=== PATIENT | female | born 1990 | race Caucasian/White ===

== ENCOUNTER 2023-04-16 13:50 | Emergency (ER) | payer OTHER, SELFPAY ==
[2023-04-16 13:57] VITALS: BP 115/80; PULSE 92; RESP 16; TEMP 36.6; O2SAT 97; BMI 27.3
--- NOTE | 2023-04-16 14:01 | XR_ITS ---
The [address] [address] Patient Name: MARISOL SKY MRN: [id number] date: 1990 Sex: F Assigned Patient Location: ER Current Patient Location: ER Accession/Order Number: [id number] Exam Date: 04/16/2023 14:27 Report Date: 04/16/2023 14:43 At the request of: VISH SAVAGE Procedure: XR knee LT 4V PROCEDURE: XR knee LT 4V COMPARISON: None. HISTORY: fall FINDINGS: BONES:No fracture, acute abnormality, or significant arthropathy. SOFT TISSUES:Negative. No visible soft tissue swelling. EFFUSION:None visible. OTHER: Negative. XR/XR knee LT 4V IMPRESSION: No acute radiographic abnormality Electronically authenticated by: PAVAN MULTANI Date: 04/16/2023 14:43
--- NOTE | 2023-04-16 14:01 | XR_ITS ---
The [address] [address] Patient Name: MARISOL SKY MRN: [id number] date: 1990 Sex: F Assigned Patient Location: ER Current Patient Location: ER Accession/Order Number: [id number] Exam Date: 04/16/2023 14:27 Report Date: 04/16/2023 14:45 At the request of: VISH SAVAGE Procedure: XR sacrum coccyx min 2V PROCEDURE: XR sacrum coccyx min 2V COMPARISON: None. HISTORY: fall FINDINGS: SACRUM: No fracture, disruption of the sacral ala line, or cortical irregularity. COCCYX: No fracture or suspicious alignment. SOFT TISSUES: No widening of the sacroiliac joints. No radiopaque foreign body. OTHER: XR/XR sacrum coccyx min 2V IMPRESSION: No acute fracture Electronically authenticated by: PAVAN MULTANI Date: 04/16/2023 14:45
--- NOTE | 2023-04-16 14:22 | PC.NURSE ---
PT SLIPPED ON ICE IN [place]IVEWAY ON [place] ON L SIDE AND BUTTOCK. C/O L KNEE PAIN AND L HIP PAIN. BRUISE TO HIP. DENIES HITTING HEAD. HAS BEEN USING TYLENOL AND ICING
--- NOTE | 2023-04-16 14:45 | ED.GENADUL1 ---
HPI - General Adult General Chief complaint: Extremity Injury, Lower Stated complaint: FELL IN DRIVEWAY AT HOME ON ICE Time Seen by Provider: 04/16/23 14:01 Source: patient Mode of arrival: walk-in Limitations: no limitations History of Present Illness HPI narrative: Patient is a 33-year-old female who presents to the emergency department for the evaluation of pain in the left buttock and left knee. Patient states she slipped on ice at home 2 days ago. She is able to walk more today which prompted her to come to the ER. She states she has been missing work. She states she slipped and landed on her left side, no head injury or loss of consciousness. She reports some mild stiffness to the low back but reports most of her pain is in the left buttock and left knee. She does have bruising to the left thigh. No medications taken prior to arrival today. She is not concerned for . She drove herself to the emergency department and ambulated into the ER. Related Data Previous Rx's Medication Instructions Recorded hydrocodone 5 mg-acetaminophen 325 1 tab PO Q6H PRN pain 3 days #12 04/16/23 mg tablet tabs ketorolac 10 mg tablet 10 mg PO TID PRN pain #10 tabs 04/16/23 methocarbamol 750 mg tablet 750 mg PO TID PRN pain #20 tabs 04/16/23 Allergies Allergy/AdvReac Type Severity Reaction Status Date / Time No Known Drug Allergies Allergy Verified 04/16/23 13:56 Review of Systems ROS Constitutional Denies: fever or chills Ears, nose, mouth, and throat Denies: throat pain or nasal congestion Cardiovascular Denies: chest pain Respiratory Denies: shortness of breath or cough Gastrointestinal Denies: nausea or vomiting Musculoskeletal Reports: back pain, extremity pain and joint pain; Denies: neck pain or extremity swelling Integumentary/Breast Denies: rash Neurological Denies: headache, dizziness or vertigo Endocrine Denies: excessive urination Hematologic/Lymphatic Denies: easy bruising or easy bleeding PFSH PFSH Social History Smoking status: Never smoker Exam Narrative Exam Narrative: Gen.: Awake, alert, in no distress Head: Normocephalic, atraumatic ENT: Moist mucous membranes; No bony tenderness of the C-spine Respiratory: No respiratory distress Back: No bony tenderness of the T-spine or L-spine with diffuse tenderness of the left posterior buttock Extremities: Ecchymosis noted to the anteromedial aspect of the left knee with no laxity of the left patella or joint effusion. Diffuse tenderness of the left posterior hip/buttock as well as the left hip with a large area of ecchymosis noted over the left superior/lateral hip. Psych: Normal mood and affect Neuro: No focal neuro deficit Skin: Warm, dry, intact Constitutional Vital Signs, click to edit/add: Last Vital Signs Temp 97.9 F 04/16/23 13:57 Pulse 92 H 04/16/23 13:57 Resp 16 04/16/23 13:57 BP 115/80 04/16/23 13:57 Pulse Ox 97 04/16/23 13:57 O2 Del Method Room Air 04/16/23 13:57 Course Vital Signs Vital signs: Vital Signs Temperature 97.9 F 04/16/23 13:57 Pulse Rate 92 H 04/16/23 13:57 Respiratory Rate 16 04/16/23 13:57 Blood Pressure 115/80 04/16/23 13:57 Pulse Oximetry 97 04/16/23 13:57 Oxygen Delivery Method Room Air 04/16/23 13:57 Temperature 97.9 F 04/16/23 13:57 Pulse Rate 92 H 04/16/23 13:57 Respiratory Rate 16 04/16/23 13:57 Blood Pressure 115/80 04/16/23 13:57 Pulse Oximetry 97 04/16/23 13:57 Oxygen Delivery Method Room Air 04/16/23 13:57 Medical Decision Making MDM Narrative Medical decision making narrative: Patient resell to the ER, she was treated with Toradol. Her x-rays of the sacrum coccyx, left hip, left knee are unremarkable. These were reviewed by the radiologist. Angus wrap applied to the left knee. Patient given an invalid ring for home. Follow-up with PCP and return to the emergency department if symptoms change or worsen. Short course of analgesics, muscle relaxants and NSAIDs given for home. Medical Records Medical records reviewed: Yes I reviewed the patient's medical records Imaging Data XR hip: Attestation: I have reviewed the pertinent imaging results. Radiologist's impression: ITS Impressions Knee X-Ray 04/16/23 14:01 IMPRESSION: No acute radiographic abnormality Electronically authenticated by: PAVAN MULTANI Date: 04/16/2023 14:43 Sacrum and Coccyx X-Ray 04/16/23 14:01 IMPRESSION: No acute fracture Electronically authenticated by: PAVAN MULTANI Date: 04/16/2023 14:45 Hip X-Ray 04/16/23 14:47 IMPRESSION: No acute fracture Electronically authenticated by: PAVAN MULTANI Date: 04/16/2023 15:10 Discharge Plan Discharge Chief Complaint: Extremity Injury, Lower Clinical Impression: Contusion of left leg, Fall Patient Disposition: Home, Self-Care Time of Disposition Decision: 15:15 Condition: Good Prescriptions / Home Meds: New hydrocodone-acetaminophen 5-325 mg tablet 1 tab PO Q6H PRN (Reason: pain) 3 Days Qty: 12 0RF Rx Instructions: DX: M25.562 ketorolac 10 mg tablet 10 mg PO TID PRN (Reason: pain) Qty: 10 0RF methocarbamol 750 mg tablet 750 mg PO TID PRN (Reason: pain) Qty: 20 0RF Instructions: Contusion in Adults (ED) Stand Alone Forms: Portal Instructions Referrals: Physician,Non-Staff, MD [Primary Care Provider] - 1 week
--- NOTE | 2023-04-16 14:47 | XR_ITS ---
The [address] [address] Patient Name: MARISOL SKY MRN: [id number] date: 1990 Sex: F Assigned Patient Location: ER Current Patient Location: ED.MAIN Accession/Order Number: [id number] Exam Date: 04/16/2023 14:50 Report Date: 04/16/2023 15:10 At the request of: VISH SAVAGE Procedure: XR hip LT min 2V PROCEDURE: XR hip LT min 2V COMPARISON: None. HISTORY: fall FINDINGS: BONES:No fracture, acute abnormality, or significant arthropathy. SOFT TISSUES:Negative. No visible soft tissue swelling. EFFUSION:None visible. OTHER: Negative. XR/XR hip LT min 2V IMPRESSION: No acute fracture Electronically authenticated by: PAVAN MULTANI Date: 04/16/2023 15:10
[2023-04-16] MEDS: KETOROLAC TROMETHAMINE 10 MG TABLET PO (14:59)
== END 2023-04-16 15:32 | disposition home or self-care (01) ==
PROVIDERS: Emergency Provider Emergency Medicine
DX: S80.12XA Contusion of left lower leg, initial encounter (principal); W00.0XXA Fall on same level due to ice and snow, initial encounter
CPT/HCPCS: 72220; 73502; 73564; 99284

== ENCOUNTER 2024-11-19 22:48 | Emergency (ER) | payer SELFPAY ==
[2024-11-19] VITALS (11 sets, daily range): BP systolic 121–149; BP diastolic 87–100; PULSE 70–97; TEMP 36.8; O2SAT 96; BMI 29.5
--- NOTE | 2024-11-19 22:55 | ECG_ITS ---
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
--- OUTSIDE RECORDS SUMMARY | 2024-11-19 22:58 | XMS_ITS | Clinical Summary ---
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 Role Phone MgDelilah browndipti Mcnally [employer] Primary Care Provider Allergies Active Allergy Reactions Criticality Noted Date Comments Other 06/14/2021 Sugar free gum Pineapple Shortness Of Breath,Swelling High 08/06/2021 Swelling in mouth/throat, Medications SUMAtriptan (IMITREX) 100 MG tablet Take 1 tablet by mouth once as needed for Migraine 9 tablet 3 06/15/2021 Active albuterol sulfate HFA 108 (90 Base) MCG/ACT inhaler Inhale 2 puffs into the lungs every 6 hours as needed for Wheezing Active cetirizine (ZYRTEC) 10 MG tablet Take 10 mg by mouth daily Active levothyroxine (SYNTHROID) 100 MCG tablet Take 100 mcg by mouth Daily Active topiramate (TOPAMAX) 25 MG tablet Take 25 mg by mouth at bedtime Active verapamil (CALAN SR) 120 MG extended release tablet TAKE 1 TABLET BY MOUTH EVERY DAY 30 tablet 5 08/30/2021 Active Active Problems Problem Noted Date Diagnosed Date 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 Social History Tobacco Use Types Packs/Day Years Used Date Smoking Tobacco: Former Cigarettes 0.3 3.5 S tarted: 06/07/2021 Smokeless Tobacco: Never Alcohol Use Standard Drinks/Week Comments Yes 0 (1 standard drink = 0.6 oz pur e alcohol) 6 beer every 2weeks Comments No Sex and Gender Information Value Date Recorded Sex Assigned at Female 08/06/2021 10:05 AM EDT Legal Sex Female 7:52 PM EDT Gender Identity Female 08/06/2021 10:05 AM EDT Sexual Orientation Lesbian 08/06/2021 10 :05 AM EDT Last Filed Vital Signs Vital Sign Reading Time Taken Comments Blood Pressure 110/65 08/06/2021 1:43 PM EDT Pulse 85 08/06/2021 1:43 PM EDT Temperature 36.3 C (97.3 F) 08/06/2021 1:43 PM EDT Respiratory Rate 18 08/06/2021 1:43 PM EDT Oxygen Saturation 97% 06/15/2021 1:01 PM EDT Inhaled Oxygen Concentration - - Weight 88.9 kg (195 lb 14.4 oz) 08/06/2021 1:43 PM EDT Height 174 cm (5' 8.5 ) 08/06/2021 1:43 PM EDT Body Mass Index 29.35 08/06/2021 1:43 PM EDT Plan of Treatment Not on file Insurance BCBS OUT OF STATE [employer] Care 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
--- OUTSIDE RECORDS SUMMARY | 2024-11-19 22:59 | XMS_ITS | CCD ---
Author Organization [facility] Inform ion [facility] Care Team Providers Care Folder Hand Name Role Phone Provider, None Unavailable Unavailable Spasic, Max Unavailable Unavailable Provider, None Unavailable Unavailable Spasic, Max Unavailable Unavailable Unavailable Primary Care Provider Chuy Dawson CNP Primary Care Provider JAME CELAYA Referring Unavailable TERRY FATIMA Admitting Unavailable TERRY FATIMA Attending Unavailable FRANCK MEJÍA Referring Unavailable CHUY GILLESPIE Primary Care Unavailable Allergies Allergy Classification Reported Allergen(s) Allergy Type Date of Onset Reaction(s) Facility (1 source) sugar free gum; Translations: [sugar free gum] Propensity to adverse reactions (disorder) [facility] Repository (2 sources) [place] Allergy to substance 2 Shortness of Breath / Dyspnea [facility] Work Phone: NEGATED: Highlighted row has been ruled out! (2 sources) Other Propensity to adverse reactions 2 [facility] Medications Current Medications Medication Drug Class(es) Dates Sig (Normalized) Sig (Original) acetaminophen 325 mg oral tablet (1 source) Start: 06-15-2021 acetaminophen (TYLENOL) tablet 650 mg [id number] 200 actuat albuterol 0.09 mg/actuat metered dose inhaler (1 source) beta2-Adrenergic Agonist Start: 06-29-2021 ProAir HFA 108 (90 Base) MCG/ACT Inhalation Aerosol Solution 06/29/2021 Provider: Chuy Gillespie CNP cetirizine hydrochloride 10 mg oral tablet (2 sources) Histamine-1 Receptor Antagonist Start: 06-29-2021 End: 07-23-2021 Cetirizine HCl 10 MG Oral Tablet 07/23/2021 Provider: Chuy Gillespie CNP levothyroxine sodium 0.1 mg oral tablet (2 sources) l-Thyroxine Start: 06-28-2021 End: 07-20-2021 Levothyroxine Sodium 100 MCG Oral Tablet 07/20/2021 Provider: Chuy Gillespie CNP SUMAtriptan 25 mg oral tablet (6 sources) Serotonin-1b and Serotonin-1d Receptor Agonist Start: 06-21-2021 Imitrex 25 MG Oral Tablet 06/21/2021 Provider: Chuy Gillespie CNP Start: 06-15-2021 End: 06-21-2021 SUMAtriptan Succinate 100 MG Oral Tablet 06/15/2021 - 06/21/2021 Provider: Start: 06-15-2021 take 1 tablet by spike th once as needed SUMAtriptan (IMITREX) 100 MG tablet Take 1 tablet by mouth once as needed for Migraine 9 tablet 3 06/15/2021 Active topiramate 25 mg oral tablet (2 sources) Start: 06-21-2021 Topamax 25 MG Oral Tablet 06/21/2021 Provider: Chuy Gillespie CNP Completed/Discontinued Medications Medication Drug Class(es) Dates Sig (Normalized) Sig (Original) Allergy Relief 25 MG Oral Capsule (2 sources) Start: 06-21-2021 End: 06-29-2021 Allergy Relief 25 MG Oral Capsule 06/21/2021 - 06/29/2021 Provider: Start: 06-21-2021 Allergy Relief 25 MG Oral Capsule 06/21/2021 Provider: aspirin 81 mg chewable tablet (1 source) Platelet Aggregation Inhibitor, Nonsteroidal Anti-inflammatory Drug Start: 06-15-2021 End: 06-15-2021 aspirin chewable tablet 324 mg Start: 06-15-2021 End: 06-15-2021 aspirin chewable tablet 324 mg calcium chloride 0.0014 meq/ml / potassium chloride 0.004 meq/ml / sodium chloride 0.103 meq/ml / sodium lactate 0.028 meq/ml injectable solution (1 source) Start: 06-14-2021 End: 06-15-2021 lactated ringers infusion 1,000 mL 0.4 ml enoxaparin sodium 100 mg/ml prefilled syringe (1 source) Low Molecular Weight Heparin Start: 06-15-2021 inject 40 mg by subcutaneous injection once daily 40 mg, SubCUTAneous, DAILY, First dose on Fri06/15/21 at 0900, Until Discontinued gadoteridol (PROHANCE) injection 15 mL (1 source) Start: 06-22-2021 End: 06-22-2021 gadoteridol (PROHANCE) injection 15 mL iopamidol (ISOVUE-370) 76 % injection 75 mL (1 source) Start: 06-14-2021 End: 06-14-2021 iopamidol (ISOVUE-370) 76 % injection 75 mL 1 ml ketorolac tromethamine 15 mg/ml cartridge (1 source) Nonsteroidal Anti-inflammatory Drug, Cyclooxygenase Inhibitor Start: 06-14-2021 End: 06-15-2021 ketorolac (TORADOL) injection 30 mg 10 ml lidocaine hydrochloride 10 mg/ml injection (1 source) Antiarrhythmic, Amide Local Anesthetic Start: 06-14-2021 End: 06-15-2021 lidocaine 1 % injection Problems Problem Classification Problem Date Documented Date Episodic/Chronic Anxiety disorders (2 sources) Panic disorder without agoraphobia; Translations: [Panic disorder without agoraphobia] Onset: 06-21-2021 Chronic Blindness and vision defects (5 sources) Homonymous bilateral field defects, left side; Translations: [Homonymous bilateral field defects] Onset: 06-15-2021 Episodic Headache; including migraine (7 sources) Ophthalmic migraine; Translations: [Migraine with aura, not intractable, without status migrainosus] Onset: 06-15-2021 Chronic Headache; including migraine (1 source) Acute headache; Translations: [Acute nonintractable headache, unspecified headache type] Episodic Immunizations and screening for infectious disease (2 sources) HIV screening; Translations: [Special screening examination for other specified viral diseases] Onset: 06-21-2021 Episodic Neoplasms of unspecified nature or uncertain behavior (1 source) 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; Translations: [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] Onset: 06-29-2021 Episodic Other lower respiratory disease (1 source) Cough; Translations: [Cough] Onset: 07-26-2021 Episodic Other nutritional; endocrine; and metabolic disorders (4 sources) Finding of body mass index; Translations: [Body mass index (observable entity)] Onset: 06-21-2021 Episodic Other screening for suspected conditions (not mental disorders or infectious disease) (2 sources) Encounter for screening for diabetes mellitus; Translations: [Diabetes Risk Test Score] Onset: 06-21-2021 Episodic Results Test Name Value Interpretation Reference Range Facility MRI BRAIN W WO CONTRASTon MRI BRAIN W WO CONTRAST EXAMINATION: MRI OF THE BRAIN WITHOUT AND WITH CONTRAST 06/22/2021 4:22 pm TECHNIQUE: Multiplanar multisequence MRI of the head/brain was performed without and with the administration of intravenous contrast. COMPARISON: None. HISTORY: ORDERING SYSTEM PROVIDED HISTORY: Hemianopia of left eye TECHNOLOGIST PROVIDED HISTORY: Send Report to Chuy Mcdonald CNP STAT Creatinine as needed:->Yes Is the patient ?->No Initial evaluation. FINDINGS: INTRACRANIAL STRUCTURES/VENTRICLES: There is no acute infarct. No mass effect or midline shift. No evidence of an acute intracranial hemorrhage. The ventricles and sulci are normal in size and configuration. The sellar/suprasellar regions appear unremarkable. The normal signal voids within the major intracranial vessels appear maintained. No abnormal focus of enhancement is seen within the brain. 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 ORBITS: The visualized portion of the orbits demonstrate no acute abnormality. SINUSES: Mild scattered mucosal thickening of the ethmoid sinuses bilaterally. Trace opacification of the right mastoid air cells. BONES/SOFT TISSUES: The bone marrow signal intensity appears normal. The soft tissues demonstrate no acute abnormality. IMPRESSION: 1. A septated cystic lesion is seen in the region of the pineal gland measuring up to 11 mm in size. 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 2. Otherwise, unremarkable MRI of the brain. Interpreted by: Dl Beverly MD Signed by: Dl Beverly MD 06/23/21 CC Recipients: Chuy Gillespie APRN - KATHY - Fax Final result Normal [facility] 1. A septated cystic lesion is seen in the region of the pineal gland measuring up to 11 mm in size. 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 2. Otherwise, unremarkable MRI of the brain. [facility] CONSOLID[facility] EXAMINATION: MRI OF THE BRAIN WITHOUT AND WITH CONTRAST 06/22/2021 4:22 pm TECHNIQUE: Multiplanar multisequence MRI of the head/brain was performed without and with the administration of intravenous contrast. COMPARISON: None. HISTORY: ORDERING SYSTEM PROVIDED HISTORY: Hemianopia of left eye TECHNOLOGIST PROVIDED HISTORY: Send Report to [facility] STAT Creatinine as needed:->Yes Is the patient ?->No Initial evaluation. FINDINGS: INTRACRANIAL STRUCTURES/VENTRICLES: There is no acute infarct. No mass effect or midline shift. No evidence of an acute intracranial hemorrhage. The ventricles and sulci are normal in size and configuration. The sellar/suprasellar regions appear unremarkable. The normal signal voids within the major intracranial vessels appear maintained. No abnormal focus of enhancement is seen within the brain. 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 ORBITS: The visualized portion of the orbits demonstrate no acute abnormality. SINUSES: Mild scattered mucosal thickening of the ethmoid sinuses bilaterally. Trace opacification of the right mastoid air cells. BONES/SOFT TISSUES: The bone marrow signal intensity appears normal. The soft tissues demonstrate no acute abnormality. [facility]SOL[facility] Dl Beverly MD - 06/23/2021 EXAMINATION: MRI OF THE BRAIN WITHOUT AND WITH CONTRAST 06/22/2021 4:22 pm TECHNIQUE: Multiplanar multisequence MRI of the head/brain was performed without and with the administration of intravenous contrast. COMPARISON: None. HISTORY: ORDERING SYSTEM PROVIDED HISTORY: Hemianopia of left eye TECHNOLOGIST PROVIDED HISTORY: Send Report to [facility] STAT Creatinine as needed:->Yes Is the patient ?->No Initial evaluation. FINDINGS: INTRACRANIAL STRUCTURES/VENTRICLES: There is no acute infarct. No mass effect or midline shift. No evidence of an acute intracranial hemorrhage. The ventricles and sulci are normal in size and configuration. The sellar/suprasellar regions appear unremarkable. The normal signal voids within the major intracranial vessels appear maintained. No abnormal focus of enhancement is seen within the brain. 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 ORBITS: The visualized portion of the orbits demonstrate no acute abnormality. SINUSES: Mild scattered mucosal thickening of the ethmoid sinuses bilaterally. Trace opacification of the right mastoid air cells. BONES/SOFT TISSUES: The bone marrow signal intensity appears normal. The soft tissues demonstrate no acute abnormality. IMPRESSION: 1. A septated cystic lesion is seen in the region of the pineal gland measuring up to 11 mm in size. 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 2. Otherwise, unremarkable MRI of the brain. [employer] Phone: MRI BRAIN W WO CONTRASTOrder ed By: Dl Beverly on 06-23-2021 [facility]: MRI BRAIN W WO CONTRASTon Radiology Study observation (narrative) [employer] Phone: Cult,CSFon 06-18-2021 Cult,CSF Specimen Description .CSF Direct Exam NO NEUTROPHILS SEEN NO BACTERIA SEEN Gram stain made from cytocentrifuged specimen. Organisms and cells will be concentrated. Culture NO GROWTH 3 DAYS Report Status FINAL 06/18/2021 Normal [facility] Comment on above: Performed By: #### C FC ####[address] [id number] Lab Director: Saravanan Knight, [address] [place], [place] [id number] Lab Director: Benito March MD CSF Cell Counton 06-15-2021 Appearance (U) Clear Normal [facility] Comment on above: Performed By: #### C FCNT #### [address] [place] [address] Dust Collector Treater: Benito March MD Color (U) COLORLESS Normal [facility] Comment on above: Performed By: #### C FCNT #### [address] [place] [address] Dust Collector Treater: Benito March MD RBC Count 0 /mm3 Normal 0 [facility] Comment on above: Performed By: #### C FCNT #### [address] [place], [place] [id number] Dust Collector Treater: Benito March MD Tube Number 4 Normal [facility] Comment on above: Performed By: #### C FCNT #### [facility] [address] [place] [address] Dust Collector Treater: Benito March MD WBC Count 2 /mm3 Normal 0-5 [facility] Comment on above: Result Comment: Diff erential not performed, not indicated for normal WBC Performed By: #### C FCNT #### [facility] [address] [place], [place] [id number] Dust Collector Treater: Benito March MD Xanthochromia ABSENT Normal [facility] Comment on above: Performed By: #### C FCNT #### [facility] [address] [place] [address] Dust Collector Treater: Benito March MD Volume 1.5 ML Normal [facility] Comment on above: Performed By: #### C FCNT #### [facility] [address] [place] [address] Dust Collector Treater: Benito March MD CT SELLA [place] W CONTRASTo n 06-15-2021 CT SELLA [place] W CONTRAST EXAMINATION: CT OF THE ORBITS, SELLA, EAR WITHOUT CONTRAST 06/14/2021 TECHNIQUE: CT of the orbits, sella, ear was performed without intravenous contrast. Multiplanar reformatted images were performed. Dose modulation, iterative reconstruction, and/or weight based adjustment of the mA/kV was utilized to reduce the radiation dose to as low as reasonably achievable. COMPARISON: Correlation is made with the concurrently performed CTA head and neck and noncontrast head CT. HISTORY: ORDERING SYSTEM PROVIDED HISTORY: [place] with visionchanges concern for cavenous sinus thrombosis TECHNOLOGIST PROVIDED HISTORY: [place] with visionchanges concern for cavenous sinus thrombosis Decision Support Exception - unselect if not a suspected or confirmed emergency medical condition->Emergency Medical Condition (MA) FINDINGS: ORBITS: The globes appear intact. The extraocular muscles, optic nerve sheath complexes and lacrimal glands appear unremarkable. No retrobulbar hematoma or mass is seen. No evidence of edema or venous engorgement, including preseptal regions. No suggestion of exophthalmos. SOFT TISSUES: No appreciable soft tissue swelling is seen. BRAIN: The visualized portion of the intracranial contents appear unremarkable. SELLA/CAVERNOUS SINUS: There is no evidence of enlargement or filling defect of the cavernous sinuses. No abnormal enhancement. Density appears normal on the noncontrast head CT. SINUSES: The visualized paranasal sinuses demonstrate no acute abnormality. BONES: No acute osseous abnormality is seen. Specifically, no dental abscess is evident utilizing bone windows from the CTA head and neck. IMPRESSION: Normal examination. No evidence, either primary or secondary, of cavernous sinus thrombosis. No evidence of any head and neck infection that would lead to cavernous sinus thrombosis. Interpreted by: Ryan Lovelace Signed by: Ryan Lovelace 06/14/21 Final result Normal [facility] CTA HEAD NECK W CONTRASTon 0 06-15-2021 CTA HEAD NECK W CONTRAST EXAMINATION: CTA OF THE HEAD AND NECK WITH CONTRAST 06/14/2021 9:06 pm: TECHNIQUE: CTA of the head and neck was performed with the administration of intravenous contrast. Multiplanar reformatted images are provided for review. MIP images are provided for review. Stenosis of the internal carotid arteries measured using NASCET criteria. Dose modulation, iterative reconstruction, and/or weight based adjustment of the mA/kV was utilized to reduce the radiation dose to as low as reasonably achievable. COMPARISON: CT head 06/14/2021 HISTORY: ORDERING SYSTEM PROVIDED HISTORY: with vision changes and N/V TECHNOLOGIST PROVIDED HISTORY: with vision changes and N/V Decision Support Exception - unselect if not a suspected or confirmed emergency medical condition->Emergency Medical Condition (MA) FINDINGS: CTA NECK: AORTIC ARCH/ARCH VESSELS: No dissection or arterial injury. No significant stenosis of the brachiocephalic or subclavian arteries. CAROTID ARTERIES: No dissection, arterial injury, or hemodynamically significant stenosis by NASCET criteria. VERTEBRAL ARTERIES: No dissection, arterial injury, or significant stenosis. SOFT TISSUES: The lung apices are clear. No cervical or superior mediastinal lymphadenopathy. The larynx and pharynx are unremarkable. No acute abnormality of the salivary and thyroid glands. BONES: No acute osseous abnormality. CTA HEAD: ANTERIOR CIRCULATION: No significant stenosis of the intracranial internal carotid, anterior cerebral, or middle cerebral arteries. No aneurysm. POSTERIOR CIRCULATION: origin left HEAD OF LOSS PREVENTION. No significant stenosis of the vertebral, basilar, or posterior cerebral arteries. No aneurysm. OTHER: No dural venous sinus thrombosis on this non-dedicated study. BRAIN: No mass effect or midline shift. No extra-axial fluid collection. The salazar-white differentiation is maintained. IMPRESSION: Negative for large vessel occlusion or hemodynamic stenosis. Negative for aneurysm. Interpreted by: Ralf Cruz MD Signed by: Ralf Cruz MD 06/14/21 Final result Normal [facility] Cell Count with Differential , CSFon 06-15-2021 Appearance, [facility], [facility] 0 /mm3 0 [facility] Supernatant Color, CSF COLORLESS [facility] Tube Number, CSF 4 [facility] Volume, CSF 1.5 ML [facility] WBC, CSF 2 /mm3 0 - 5 /mm3 [facility] Comment on above: Differential not per formed, not indicated for normal WBC Xanthochromia ABSENT [facility] Glucose, CSF 57 mg/dL 40 - 70 mg/dL [facility] Glucose [Mass/Vol] 57 mg/dL Normal 40-70 [facility] Comment on above: Performed By: #### C GLU, CTP #### [facility] [address] [place] [address] Dust Collector Treater: Benito March MD Lumbar Punctureon 06-15-2021 Matilde Franklin MD 06/15 12:05 AM Lumbar Puncture Date/Time: 06/15/2021 12:04 AM Performed by: Matilde Franklin MD Authorized by: Matilde Franklin MD Consent: Consent obtained: Written Consent given by: Patient Risks discussed: Bleeding, headache, nerve damage, infection, pain and repeat procedure Pre-procedure details: Procedure purpose: Diagnostic Anesthesia (see MAR for exact dosages): Anesthesia method: Local infiltration Local anesthetic: Lidocaine 1% w/o epi Procedure details: Lumbar space: L4-L5 interspace Patient position: Sitting Needle gauge: 20 Needle type: Alesha pencil tip Needle length (in): 3.5 Ultrasound guidance: no Number of attempts: 1 Fluid appearance: Clear Tubes of fluid: 4 Total volume (ml): 4 Post-procedure: Puncture site: Adhesive bandage applied and direct pressure applied Patient tolerance of procedure: Tolerated well, no immediate complications [facility] Work Phone: [facility] Work Phone: No Panel Informationon 06-15 [facility] Protein, CSFon 06-15-2021 Protein, CSF 26 mg/dL 15.0 - 45.0 mg/dL [facility] Protein, Total, CSFon 2021 Total Protein - CSF 26.0 mg/dL Normal 15.0-45.0 [facility] Comment on above: Performed By: #### C GLU, CTP #### [facility] [address] [place], [place] [id number] Dust Collector Treater: Benito March MD Basic Metabolic Panelon 05-23 Anion gap [Moles/Vol] 10 mmol/L 9 - 17 mmol/L [facility] Calcium [Mass/Vol] 9.7 mg/dL 8.6 - 10.4 mg/dL [facility] Chloride [Moles/Vol] 103 mmol/L 98 - 107 mmol/L [facility] CO2 [Moles/Vol] 25 mmol/L 20 - 31 mmol/L [facility] Creatinine [Mass/Vol] 0.63 mg/dL 0.50 - 0.90 mg/dL [facility] GFR >60 >60 mL/min [facility] GFR Non- >60 >60 mL/min [facility] Glucose [Mass/Vol] 85 mg/dL 70 - 99 mg/dL [facility] Potassium [Moles/Vol] 3.9 mmol/L 3.7 - 5.3 mmol/L [facility] Sodium [Moles/Vol] 138 mmol/L 135 - 144 mmol/L [facility] Urea nitrogen (BldV) [Mass/Vol] 11 mg/dL 6 - 20 mg/dL [facility] Urea nitrogen/Creatini ne (Bld) [Mass ratio] 17 [facility] Basic Metabolic Profon 06-14 (cont.) Normal [facility] Comment on above: Result Comment: Aver age GFR for 30-39 years old: 107 mL/min/1.73sq m Chronic Kidney Disease: <60 mL/min/1.73sq m Kidney failure: <15 mL/min/1.73sq m eGFR calculated using average adult body mass. Additional eGFR calculator available at: [email or web address]/multiple_[email or web address] Performed By: #### C DP, HCG, BMP #### [facility] [address] [place], [place] [id number] Dust Collector Treater: Benito March MD Anion gap [Moles/Vol] 10 mmol/L Normal 9-17 [facility] Comment on above: Performed By: #### C DP, HCG, BMP #### [facility] [address] [place], [place] [id number] Dust Collector Treater: Benito March MD BUN/CRE Ratio 17 Normal 9-20 [facility] Comment on above: Performed By: #### C DP, HCG, BMP #### [facility] [address] [place], [place] [id number] Dust Collector Treater: Benito March MD Calcium [Mass/Vol] 9.7 mg/dL Normal 8.6-10.4 [facility] Comment on above: Performed By: #### C DP, HCG, BMP #### [facility] [address] [place], [place] [id number] Dust Collector Treater: Benito March MD Chloride [Moles/Vol] 103 mmol/L Normal 98-107 [facility] Comment on above: Performed By: #### C DP, HCG, BMP #### [facility] [address] [place], [place] [address] Dust Collector Treater: Benito March MD CO2 [Moles/Vol] 25 mmol/L Normal 20-31 [facility] Comment on above: Performed By: #### C DP, HCG, BMP #### [facility] [address] [place], [place] [id number] Dust Collector Treater: Benito March MD Creatinine [Mass/Vol] 0.63 mg/dL Normal 0.50-0.90 [facility] Comment on above: Performed By: #### C DP, HCG, BMP #### [facility] [address] [place], [place] [id number] Dust Collector Treater: Benito March MD GFR, Amer >60 Normal >60 [facility] Comment on above: Performed By: #### C DP, HCG, BMP #### [facility] [address] [place], [place] [id number] Dust Collector Treater: Benito March MD GFR,non Amer >60 Normal >60 [facility] Comment on above: Performed By: #### C DP, HCG, BMP #### [facility] [address] [place], [place] [id number] Dust Collector Treater: Benito March MD Glucose [Mass/Vol] 85 mg/dL Normal 70-99 [facility] Comment on above: Performed By: #### C DP, HCG, BMP #### [facility] [address] [place], [place] [id number] Dust Collector Treater: Benito March MD Potassium [Moles/Vol] 3.9 mmol/L Normal 3.7-5.3 [facility] Comment on above: Performed By: #### C DP, HCG, BMP #### [facility] [address] [place], [place] [id number] Dust Collector Treater: Benito March MD Sodium [Moles/Vol] 138 mmol/L Normal 135-144 [facility] Comment on above: Performed By: #### C DP, HCG, BMP #### [facility] [address] [place] [address] Dust Collector Treater: Benito March MD Staging: Normal [facility] Comment on above: Result Comment: Stag e 1: Some kidney damage normal GFR Stage 2: Mild kidney damage GFR 60-89 Stage 3: Moderate kidney damage GFR 30-59 Stage 4: Severe kidney damage GFR 15-29 Stage 5: Severe kidney damage GFR <15 ESRD - chronic treatment by dialysis or transplant Performed By: #### C DP, HCG, BMP #### [facility] [address] [place] [address] Dust Collector Treater: Benito March MD Urea nitrogen [Mass/Vol] 11 mg/dL Normal 6-20 [facility] Comment on above: Performed By: #### C DP, HCG, BMP #### [facility] [address] [place] [address] Dust Collector Treater: Benito March MD CBC with Auto Differentialon 06-14-2021 Absolute Eos # 0.14 [facility] Absolute Immature Granulocyte <0.03 [facility] Absolute Lymph # 2.58 [facility] Absolute [place] [facility] 0[facility] (Bld) [#/Vol] 0.05 10*3/uL [facility] Basophils/100 WBC (Bld) 1 % 0 - 2 % [facility] Eosinophils/100 WBC (Bld) 2 % 1 - 4 % [facility] Hematocrit (Bld) [Volume fraction] 42.0 % 36.3 - 47.1 % [facility] Hemoglobin.gastro intestinal spec 1 Ql (Stl) 14.2 g/dL 11.9 - 15.1 g/dL [facility] Immature granulocytes/100 WBC (Bld) 0 % 0 [facility] Lymphocytes/100 WBC (Bld) 40 % 24 - 43 % [facility] MCH (RBC) [Entitic mass] 30.1 pg 25.2 - 33.5 pg [facility] MCHC (RBC) [Mass/Vol] 33.8 g/dL 28.4 - 34.8 g/dL [facility] MCV (RBC) [Entitic vol] 89.0 fL 82.6 - 102.9 fL [facility] Monocytes/100 WBC (Bld) 8 % 3 - 12 % [facility] NRBC Automated 0.0 0.0 per 100 WBC [facility] Platelet distribution width (Bld) [Ratio] 12.6 % 11.8 - 14.4 % [facility] Platelet mean volume (Bld) [Entitic vol] 9.5 fL 8.1 - 13.5 fL [facility] Platelets (Bld) [#/Vol] 287 10*3/uL [facility] RBC (Bld) [#/Vol] 4.72 10*6/uL 3.95 - 5.11 m/uL [facility] Segmented neutrophils/100 WBC (Bld) 49 % 36 - 65 % [facility] Segs [facility] 3.11 [facility]ld) [#/Vol] 6.4 10*3/uL [facility] CBC with Diffon 06-14-2021 Abs. Basophil 0.05 k/uL Normal 0.00-0.20 [facility] Comment on above: Performed By: #### C DP, HCG, BMP #### [facility] [address] [place], [place] [id number] Dust Collector Treater: Benito March MD Abs.Imm.Granulocy te <0.03 Normal 0.00-0.30 [facility] Comment on above: Performed By: #### C DP, HCG, BMP #### [address] [place], [place] [id number] Dust Collector Treater: Benito March MD Abs.Neutrophil (Seg) 3.11 k/uL Normal 1.50-8.10 [facility] Comment on above: Performed By: #### C DP, HCG, BMP #### [address] [place] [address] Dust Collector Treater: Benito March MD Basophils/100 WBC (Bld) 1 % Normal 0-2 [facility] Comment on above: Performed By: #### C DP, HCG, BMP #### [facility] [address] [place], [place] [id number] Dust Collector Treater: Benito March MD Eosinophils (Bld) [#/Vol] 0.14 10*3/uL Normal 0.00-0.44 [facility] Comment on above: Performed By: #### C DP, HCG, BMP #### [facility] [address] [place] [address] Dust Collector Treater: Benito March MD Eosinophils/100 WBC (Bld) 2 % Normal 1-4 [facility] Comment on above: Performed By: #### C DP, HCG, BMP #### [facility] [address] [place], [place] [id number] Dust Collector Treater: Benito March MD Erythrocyte distribution width (RBC) [Ratio] 12.6 % Normal 11.8-14.4 [facility] Comment on above: Performed By: #### C DP, HCG, BMP #### [facility] [address] [place] [id number] Dust Collector Treater: Benito March MD Hematocrit (Bld) [Volume fraction] 42.0 % Normal 36.3-47.1 [facility] Comment on above: Performed By: #### C DP, HCG, BMP #### [address] [place] [id number] Dust Collector Treater: Benito March MD Hemoglobin (Bld) [Mass/Vol] 14.2 g/dL Normal 11.9-15.1 [facility] Comment on above: Performed By: #### C DP, HCG, BMP #### [address] [place] [id number] Dust Collector Treater: Benito March MD Immature granulocytes/100 WBC (Bld) 0 % Normal 0 [facility] Comment on above: Performed By: #### C DP, HCG, BMP #### [address] [place], [facility]83 Dust Collector Treater: Benito March MD Lymphocytes (Bld) [#/Vol] 2.58 10*3/uL Normal 1.10-3.70 [facility] Comment on above: Performed By: #### C DP, HCG, BMP #### [facility] [address] [place] [address] Dust Collector Treater: Benito March MD Lymphocytes/100 WBC (Bld) 40 % Normal 24-43 [facility] Comment on above: Performed By: #### C DP, HCG, BMP #### [facility] [address] [place], [place] [address] Dust Collector Treater: Benito March MD MCH (RBC) [Entitic mass] 30.1 pg Normal 25.2-33.5 [facility] Comment on above: Performed By: #### C DP, HCG, BMP #### [address] [place], [place] [address] Dust Collector Treater: Benito March MD MCHC (RBC) [Mass/Vol] 33.8 g/dL Normal 28.4-34.8 [facility] Comment on above: Performed By: #### C DP, HCG, BMP #### [address] [place] [address] Dust Collector Treater: Benito March MD MCV (RBC) [Entitic vol] 89.0 fL Normal 82.6-102.9 [facility] Comment on above: Performed By: #### C DP, HCG, BMP #### [address] [place] [address] Dust Collector Treater: Benito March MD Monocytes (Bld) [#/Vol] 0.54 10*3/uL Normal 0.10-1.20 [facility] Comment on above: Performed By: #### C DP, HCG, BMP #### [address] [place], [place] [address] Dust Collector Treater: Benito March MD Monocytes/100 WBC (Bld) 8 % Normal 3-12 [facility] Comment on above: Performed By: #### C DP, HCG, BMP #### [address] [place] [id number] Dust Collector Treater: Benito March MD Neutrophil (Seg) 49 % Normal 36-65 [facility] Comment on above: Performed By: #### C DP, HCG, BMP #### [facility] [address] [place] [address] Dust Collector Treater: Benito March MD NRBC Automated 0.0 per 100 WBC Normal 0.0 [facility] Comment on above: Performed By: #### C DP, HCG, BMP #### [facility] [address] [place], [facility]83 Dust Collector Treater: Benito March MD Platelet mean volume (Bld) [Entitic vol] 9.5 fL Normal 8.1-13.5 [facility] Comment on above: Performed By: #### C DP, HCG, BMP #### [address] [place], [facility]83 Dust Collector Treater: Benito March MD Platelets (Bld) [#/Vol] 287 10*3/uL Normal 138-453 [facility] Comment on above: Performed By: #### C DP, HCG, BMP #### [address] [place] [address] Dust Collector Treater: Benito March MD RBC (Bld) [#/Vol] 4.72 10*6/uL Normal 3.95-5.11 [facility] Comment on above: Performed By: #### C DP, HCG, BMP #### [address] [place], [facility]83 Dust Collector Treater: Benito March MD WBC (Bld) [#/Vol] 6.4 10*3/uL Normal 3.5-11.3 [facility] Comment on above: Performed By: #### C DP, HCG, BMP #### [address] [place] [address] Dust Collector Treater: Benito aMrch MD CT HEAD WO CONTRASTon 2021 CT HEAD WO CONTRAST EXAMINATION: CT OF THE HEAD WITHOUT CONTRAST 06/14/2021 9:09 pm TECHNIQUE: CT of the head was performed without the administration of intravenous contrast. Dose modulation, iterative reconstruction, and/or weight based adjustment of the mA/kV was utilized to reduce the radiation dose to as low as reasonably achievable. COMPARISON: None. HISTORY: ORDERING SYSTEM PROVIDED HISTORY: [place] with vision changes TECHNOLOGIST PROVIDED HISTORY: [place] with vision changes Decision Support Exception - unselect if not a suspected or confirmed emergency medical condition->Emergency Medical Condition (MA) Is the patient ?->No FINDINGS: BRAIN/VENTRICLES: There is no acute intracranial hemorrhage, mass effect or midline shift. No abnormal extra-axial fluid collection. The salazar-white differentiation is maintained without evidence of an acute infarct. There is no evidence of hydrocephalus. ORBITS: The visualized portion of the orbits demonstrate no acute abnormality. SINUSES: The visualized paranasal sinuses and mastoid air cells demonstrate no acute abnormality. SOFT TISSUES/SKULL: No acute abnormality of the visualized skull or soft tissues. IMPRESSION: No acute intracranial abnormality. Interpreted by: Vaughn Cruz MD Signed by: Vaughn Cruz MD 06/14/21 Final result Normal [facility] CT Head WO Contraston 2021 No acute intracrania l abnormality. [facility] EXAMINATION: CT OF THE HEAD WITHOUT CONTRAST 06/14/2021 9:09 pm TECHNIQUE: CT of the head was performed without the administration of intravenous contrast. Dose modulation, iterative reconstruction, and/or weight based adjustment of the mA/kV was utilized to reduce the radiation dose to as low as reasonably achievable. COMPARISON: None. HISTORY: ORDERING SYSTEM PROVIDED HISTORY: [place] with vision changes TECHNOLOGIST PROVIDED HISTORY: [place] with vision changes Decision Support Exception - unselect if not a suspected or confirmed emergency medical condition->Emergency Medical Condition (MA) Is the patient ?->No FINDINGS: BRAIN/VENTRICLES: There is no acute intracranial hemorrhage, mass effect or midline shift. No abnormal extra-axial fluid collection. The salazar-white differentiation is maintained without evidence of an acute infarct. There is no evidence of hydrocephalus. ORBITS: The visualized portion of the orbits demonstrate no acute abnormality. SINUSES: The visualized paranasal sinuses and mastoid air cells demonstrate no acute abnormality. SOFT TISSUES/SKULL: No acute abnormality of the visualized skull or soft tissues. [facility] Vaughn Cruz MD - 06/14/2021 EXAMINATION: CT OF THE HEAD WITHOUT CONTRAST 06/14/2021 9:09 pm TECHNIQUE: CT of the head was performed without the administration of intravenous contrast. Dose modulation, iterative reconstruction, and/or weight based adjustment of the mA/kV was utilized to reduce the radiation dose to as low as reasonably achievable. COMPARISON: None. HISTORY: ORDERING SYSTEM PROVIDED HISTORY: [place] with vision changes TECHNOLOGIST PROVIDED HISTORY: [place] with vision changes Decision Support Exception - unselect if not a suspected or confirmed emergency medical condition->Emergency Medical Condition (MA) Is the patient ?->No FINDINGS: BRAIN/VENTRICLES: There is no acute intracranial hemorrhage, mass effect or midline shift. No abnormal extra-axial fluid collection. The salazar-white differentiation is maintained without evidence of an acute infarct. There is no evidence of hydrocephalus. ORBITS: The visualized portion of the orbits demonstrate no acute abnormality. SINUSES: The visualized paranasal sinuses and mastoid air cells demonstrate no acute abnormality. SOFT TISSUES/SKULL: No acute abnormality of the visualized skull or soft tissues. IMPRESSION: No acute intracranial abnormality. [employer] Phone: Radiology Study observation (narrative) [employer] Phone: CT Head WO ContrastOrdered B y: Vaughn Cruz on 06-14-2021 [employer] Phone: CT Sella Turcica W Contrasto n 06-14-2021 Normal examination. No evidence, either primary or secondary, of cavernous sinus thrombosis. No evidence of any head and neck infection that would lead to cavernous sinus thrombosis. [facility] EXAMINATION: CT OF THE ORBITS, SELLA, EAR WITHOUT CONTRAST 06/14/2021 TECHNIQUE: CT of the orbits, sella, ear was performed without intravenous contrast. Multiplanar reformatted images were performed. Dose modulation, iterative reconstruction, and/or weight based adjustment of the mA/kV was utilized to reduce the radiation dose to as low as reasonably achievable. COMPARISON: Correlation is made with the concurrently performed CTA head and neck and noncontrast head CT. HISTORY: ORDERING SYSTEM PROVIDED HISTORY: [place] with visionchanges concern for cavenous sinus thrombosis TECHNOLOGIST PROVIDED HISTORY: [place] with visionchanges concern for cavenous sinus thrombosis Decision Support Exception - unselect if not a suspected or confirmed emergency medical condition->Emergency Medical Condition (MA) FINDINGS: ORBITS: The globes appear intact. The extraocular muscles, optic nerve sheath complexes and lacrimal glands appear unremarkable. No retrobulbar hematoma or mass is seen. No evidence of edema or venous engorgement, including preseptal regions. No suggestion of exophthalmos. SOFT TISSUES: No appreciable soft tissue swelling is seen. BRAIN: The visualized portion of the intracranial contents appear unremarkable. SELLA/CAVERNOUS SINUS: There is no evidence of enlargement or filling defect of the cavernous sinuses. No abnormal enhancement. Density appears normal on the noncontrast head CT. SINUSES: The visualized paranasal sinuses demonstrate no acute abnormality. BONES: No acute osseous abnormality is seen. Specifically, no dental abscess is evident utilizing bone windows from the CTA head and neck. [facility] Ryan Lovelace - EXAMINATION: CT OF THE ORBITS, SELLA, EAR WITHOUT CONTRAST 06/14/2021 TECHNIQUE: CT of the orbits, sella, ear was performed without intravenous contrast. Multiplanar reformatted images were performed. Dose modulation, iterative reconstruction, and/or weight based adjustment of the mA/kV was utilized to reduce the radiation dose to as low as reasonably achievable. COMPARISON: Correlation is made with the concurrently performed CTA head and neck and noncontrast head CT. HISTORY: ORDERING SYSTEM PROVIDED HISTORY: [place] with visionchanges concern for cavenous sinus thrombosis TECHNOLOGIST PROVIDED HISTORY: [place] with visionchanges concern for cavenous sinus thrombosis Decision Support Exception - unselect if not a suspected or confirmed emergency medical condition->Emergency Medical Condition (MA) FINDINGS: ORBITS: The globes appear intact. The extraocular muscles, optic nerve sheath complexes and lacrimal glands appear unremarkable. No retrobulbar hematoma or mass is seen. No evidence of edema or venous engorgement, including preseptal regions. No suggestion of exophthalmos. SOFT TISSUES: No appreciable soft tissue swelling is seen. BRAIN: The visualized portion of the intracranial contents appear unremarkable. SELLA/CAVERNOUS SINUS: There is no evidence of enlargement or filling defect of the cavernous sinuses. No abnormal enhancement. Density appears normal on the noncontrast head CT. SINUSES: The visualized paranasal sinuses demonstrate no acute abnormality. BONES: No acute osseous abnormality is seen. Specifically, no dental abscess is evident utilizing bone windows from the CTA head and neck. IMPRESSION: Normal examination. No evidence, either primary or secondary, of cavernous sinus thrombosis. No evidence of any head and neck infection that would lead to cavernous sinus thrombosis. [employer] Phone: Radiology Study observation (narrative) [employer] Phone: CT Sella Turcica W ContrastO rdered By: Ryan Lovelace on 06-14-2021 [employer] Phone: CTA HEAD NECK W CONTRASTon 0 06-14-2021 Negative for large v essel occlusion or hemodynamic stenosis. Negative for aneurysm. [facility] EXAMINATION: CTA OF THE HEAD AND NECK WITH CONTRAST 06/14/2021 9:06 pm: TECHNIQUE: CTA of the head and neck was performed with the administration of intravenous contrast. Multiplanar reformatted images are provided for review. MIP images are provided for review. Stenosis of the internal carotid arteries measured using NASCET criteria. Dose modulation, iterative reconstruction, and/or weight based adjustment of the mA/kV was utilized to reduce the radiation dose to as low as reasonably achievable. COMPARISON: CT head 06/14/2021 HISTORY: ORDERING SYSTEM PROVIDED HISTORY: with vision changes and N/V TECHNOLOGIST PROVIDED HISTORY: with vision changes and N/V Decision Support Exception - unselect if not a suspected or confirmed emergency medical condition->Emergency Medical Condition (MA) FINDINGS: CTA NECK: AORTIC ARCH/ARCH VESSELS: No dissection or arterial injury. No significant stenosis of the brachiocephalic or subclavian arteries. CAROTID ARTERIES: No dissection, arterial injury, or hemodynamically significant stenosis by NASCET criteria. VERTEBRAL ARTERIES: No dissection, arterial injury, or significant stenosis. SOFT TISSUES: The lung apices are clear. No cervical or superior mediastinal lymphadenopathy. The larynx and pharynx are unremarkable. No acute abnormality of the salivary and thyroid glands. BONES: No acute osseous abnormality. CTA HEAD: ANTERIOR CIRCULATION: No significant stenosis of the intracranial internal carotid, anterior cerebral, or middle cerebral arteries. No aneurysm. POSTERIOR CIRCULATION: origin left HEAD OF LOSS PREVENTION. No significant stenosis of the vertebral, basilar, or posterior cerebral arteries. No aneurysm. OTHER: No dural venous sinus thrombosis on this non-dedicated study. BRAIN: No mass effect or midline shift. No extra-axial fluid collection. The salazar-white differentiation is maintained. [facility] Ralf Horvath MD - EXAMINATION: CTA OF THE HEAD AND NECK WITH CONTRAST 06/14/2021 9:06 pm: TECHNIQUE: CTA of the head and neck was performed with the administration of intravenous contrast. Multiplanar reformatted images are provided for review. MIP images are provided for review. Stenosis of the internal carotid arteries measured using NASCET criteria. Dose modulation, iterative reconstruction, and/or weight based adjustment of the mA/kV was utilized to reduce the radiation dose to as low as reasonably achievable. COMPARISON: CT head 06/14/2021 HISTORY: ORDERING SYSTEM PROVIDED HISTORY: with vision changes and N/V TECHNOLOGIST PROVIDED HISTORY: with vision changes and N/V Decision Support Exception - unselect if not a suspected or confirmed emergency medical condition->Emergency Medical Condition (MA) FINDINGS: CTA NECK: AORTIC ARCH/ARCH VESSELS: No dissection or arterial injury. No significant stenosis of the brachiocephalic or subclavian arteries. CAROTID ARTERIES: No dissection, arterial injury, or hemodynamically significant stenosis by NASCET criteria. VERTEBRAL ARTERIES: No dissection, arterial injury, or significant stenosis. SOFT TISSUES: The lung apices are clear. No cervical or superior mediastinal lymphadenopathy. The larynx and pharynx are unremarkable. No acute abnormality of the salivary and thyroid glands. BONES: No acute osseous abnormality. CTA HEAD: ANTERIOR CIRCULATION: No significant stenosis of the intracranial internal carotid, anterior cerebral, or middle cerebral arteries. No aneurysm. POSTERIOR CIRCULATION: origin left HEAD OF LOSS PREVENTION. No significant stenosis of the vertebral, basilar, or posterior cerebral arteries. No aneurysm. OTHER: No dural venous sinus thrombosis on this non-dedicated study. BRAIN: No mass effect or midline shift. No extra-axial fluid collection. The salazar-white differentiation is maintained. IMPRESSION: Negative for large vessel occlusion or hemodynamic stenosis. Negative for aneurysm. [employer] Phone: Radiology Study observation (narrative) [employer] Phone: CTA HEAD NECK W CONTRASTOrde red By: Ralf Cruz on 06-14-2021 [employer] Phone: HCG Qualitative, Serumon hCG Qual Negative NEGATIVE [facility] Comment on above: Specimens with hCG l evels near the threshold of the test (25 mIU/mL) may give a negative or indeterminate result. In such cases, another test should be performed with a new specimen in 48-72 hours. If early is suspected clinically in this setting, correlation with quantitative serum b-hCG level is suggested. [facility] has confirmed the use of plasma for this test. This has not been cleared or approved by the U.S. Food and Drug Administration. The FDA has determined that such clearance is not necessary. [facility] HCG Screen, Bloodon 06-15-19 22 HCG Screen, Blood Negative Normal NEG [facility] Comment on above: Result Comment: Spec imens with hCG levels near the threshold of the test (25 mIU/mL) may give a negative or indeterminate result. In such cases, another test should be performed with a new specimen in 48-72 hours. If early is suspected clinically in this setting, correlation with quantitative serum b-hCG level is suggested. [facility] has confirmed the use of plasma for this test. This has not been cleared or approved by the U.S. Food and Drug Administration. The FDA has determined that such clearance is not necessary. Performed By: #### C DP, HCG, BMP #### [facility] [address] [place] [address] [place] [address] Dust Collector Treater: Benito March MD Laboratory - Chemistry and C hemistry - challengeon 06-14-2021 GFR/1.73 sq M.predicted MDRD (S/P/Bld) [Vol rate/Area] [facility] Comment on above: Average GFR for 30-3 9 years old: 107 mL/min/1.73sq m Chronic Kidney Disease: <60 mL/min/1.73sq m Kidney failure: <15 mL/min/1.73sq m eGFR calculated using average adult body mass. Additional eGFR calculator available at: http://[email or web address].Sionex/multiple_crcl_[email or web address].htm Stage 1: Some kidney damage normal GFR Stage 2: Mild kidney damage GFR 60-89 Stage 3: Moderate kidney damage GFR 30-59 Stage 4: Severe kidney damage GFR 15-29 Stage 5: Severe kidney damage GFR <15 ESRD - chronic treatment by dialysis or transplant Microscopic Urinalysison - [facility] Epithelial Cells UA 0 TO 2 [facility] Interpretation and review of laboratory results Abnormal [facility] Mucus, UA 3+ Abnormal None [facility] RBC, UA 0 TO 2 [facility] WBC, UA 0 TO 2 [facility] Urinalysison 06-14-2021 Bilirubin Urine Negative [facility] Color, UA Yellow Yellow [facility] Glucose, Ur Negative NEGATIVE [facility] Interpretation and review of laboratory results Abnormal [facility] Ketones Ql (U) TRACE Abnormal NEGATIVE [facility] Leukocyte esterase Test strip Ql (U) Negative NEGATIVE [facility] Nitrite, Urine Negative NEGATIVE [facility] pH, UA 6.0 [facility] Protein, UA Negative NEGATIVE [facility] Specific [place], UA >1.030 High [facility] Turbidity UA Clear Clear [facility] Urine Hgb Negative NEGATIVE [facility] Urobilinogen, Urine Normal Normal [facility] Urinalysis, Routineon 2021 Bilirubin, SemiQt,Ur Negative Normal NEG [facility] Comment on above: Performed By: #### U A, UMICAO ####[facility] , [place] [id number] Lab Director: Benito March MD Blood, Urine Negative Normal NEG [facility] Comment on above: Performed By: #### U A, UMICAO ####[facility] , [place] [id number] Lab Director: Benito March MD Clarity (U) Clear Normal CLEAR [facility] Comment on above: Performed By: #### U A, UMICAO ####[facility] , [place] [id number] Lab Director: Benito March MD Color (U) Yellow Normal YEL [facility] Comment on above: Performed By: #### U A, UMICAO ####[facility] , [place] [id number] Lab Director: Benito March MD Glucose Ql (U) Negative Normal NEG [facility] in Hospital Comment on above: Performed By: #### U A, UMICAO ####[address] [place] [address] Lab Director: Benito March MD Ketones Ql (U) TRACE Abnormal NEG [facility] in Hospital Comment on above: Performed By: #### U A, UMICAO ####[address] [place] [address] Lab Director: Benito March MD Leukocyte esterase Test strip Ql (U) Negative Normal NEG [facility] Comment on above: Performed By: #### U A, UMICAO ####[address] [place] [address] Lab Director: Benito March MD Nitrite,Ur Negative Normal NEG [facility] Comment on above: Performed By: #### U A, UMICAO ####[address] [place] [address] Lab Director: Benito March MD PH,Ur 6.0 Normal 5.0-9.0 [facility] Comment on above: Performed By: #### U A, UMICAO ####[address] [place] [address] Lab Director: Benito March MD Protein Ql (U) Negative Normal NEG [facility] in Hospital Comment on above: Performed By: #### U A, UMICAO ####[address] [place] [address] Lab Director: Benito March MD Spec. [place],Ur >1.030 High 1.010-1.02 0 [facility] Comment on above: Performed By: #### U A, UMICAO ####[address] [place] [address] Lab Director: Benito March MD Urobilinogen,Ur Normal Normal NORM [facility] Comment on above: Performed By: #### U A, UMICAO ####[facility] [place] , [place] [id number] Lab Director: Benito March MD Urinalysis,Microon 2 ----- Normal [facility] Comment on above: Performed By: #### U A, UMICAO ####[facility] [place] , [place] [id number] Lab Director: Benito March MD Epithelial cells LM Ql (Urine sed) 0 TO 2 Normal 0-25 [facility] Comment on above: Performed By: #### U A, UMICAO ####[address] [place] [address] Lab Director: Benito March MD Mucus Strands 3+ Abnormal NONE [facility] Comment on above: Performed By: #### U A, UMICAO ####[address] , [place] [id number] Lab Director: Benito March MD Urine RBC's 0 TO 2 Normal 0-2 [facility] Comment on above: Performed By: #### U A, UMICAO ####[facility] [place] [address] Lab Director: Benito March MD Urine WBC's 0 TO 2 Normal 0-5 [facility] Comment on above: Performed By: #### U A, UMICAO ####[facility] [place] , [place] [id number] Lab Director: Benito March MD XR CHEST PORTABLEon 06-15-19 22 XR CHEST PORTABLE EXAMINATION: ONE XRAY VIEW OF THE CHEST 06/14/2021 9:16 pm COMPARISON: None. HISTORY: ORDERING SYSTEM PROVIDED HISTORY: vision changes with WESTFALL TECHNOLOGIST PROVIDED HISTORY: vision changes with WESTFALL FINDINGS: The lungs are without acute focal process. There is no effusion or pneumothorax. The cardiomediastinal silhouette is without acute process. The osseous structures are without acute process. IMPRESSION: Normal AP view of the chest. Interpreted by: Ben Bella MD Signed by: Ben Bella MD 06/14/21 Final result Normal [facility] Normal AP view of th e chest. [facility] EXAMINATION: ONE XRAY VIEW OF THE CHEST 06/14/2021 9:16 pm COMPARISON: None. HISTORY: ORDERING SYSTEM PROVIDED HISTORY: vision changes with WESTFALL TECHNOLOGIST PROVIDED HISTORY: vision changes with WESTFALL FINDINGS: The lungs are without acute focal process. There is no effusion or pneumothorax. The cardiomediastinal silhouette is without acute process. The osseous structures are without acute process. [facility] Ben Bella MD - 06/14/2021 EXAMINATION: ONE XRAY VIEW OF THE CHEST 06/14/2021 9:16 pm COMPARISON: None. HISTORY: ORDERING SYSTEM PROVIDED HISTORY: vision changes with WESTFALL TECHNOLOGIST PROVIDED HISTORY: vision changes with WESTFALL FINDINGS: The lungs are without acute focal process. There is no effusion or pneumothorax. The cardiomediastinal silhouette is without acute process. The osseous structures are without acute process. IMPRESSION: Normal AP view of the chest. [facility]: Radiology Study observation (narrative) [facility] Phone: XR CHEST PORTABLEOrdered By: Ben Bella on 06-14-2021 [facility] Phone: Coding Summaryon 12-11-2016 Coding Summary CODING DATE: 017 [facility] STATUS: Home PAYOR: Commercial Insurance ADMIT DX: REASON FOR VISIT DX: M54.5 Low back pain FINAL DX: PRINCIPAL: S39.012A Strain of muscle, fascia and tendon of lower back, initial encounter SECONDARY: PROCEDURES DOCTOR NAME DATE NOTE: The code number assigned matches the documented diagnosis and / or procedure in the patient's chart. However, the narrative phrase printed from the coding software may appear abbreviated, or result in slightly different terminology. Coded By: Todd Dodson' Date Saved: 12/11/2016 04:21 pm Normal [facility] ED Clinical Summaryon 2016 ED Clinical Summary [facility] ? Urgent [id number] [id number] clinical SummaryPERSON INFORMATIONName: MARISOL SKY Age: 26 Years Sex: FEMALEDOB: [birth year] MRN: Acct#:Visit Reason: UC - Back Pain; UC - Back Pain; lower back pain Arrival:12/03/16 13:16:00 Discharge: 12/03/16 13:46:00LOS: 000 00:30 Check In: 12/03/16 13:16:00 Checkout: 12/03/16 13:46:00Address:[address] [facility] [address]LLL: Provider, NonePROVIDER INFORMATIONProvider Role Assigned UnassignedSpasic Max ARMENTA ED PA 12/03/16 13:19:36SmLynda guillory ED Nurse 12/03/16 13:23:16VITALS INFORMATIONVital Sign Triage LatestTemperature TympanicTemperature Temporal ArteryPulse Rate 78 bpm 78 bpmO2 SatRespiratory Rate 18 br/min 18 br/minBlood Pressure 108 mmHg/68 mmHg 108 mmHg/68 mmHgMEDICAL INFORMATIONMedications Given:Medication Dose Routeketorolac 60 mg IMAllergy Information:sugar free gumPHYSICIAN DOCUMENTATIONDISCHARGE INFORMATION:Discharge Disposition: HomeDischarge Location: HomePATIENT EDUCATION INFORMATIONInstructions: Back Pain, Adult, Pnfl-rj-Udzl; Herniated Disk, Mwxu-re-OsujAxjdhy-Up:With: Address: When:None ProviderComments:Continue the Flexeril 10 mg before bed, do not drive or operate machinery when taking this medication,do not drink alcohol when taking this medication.Take 1 tab of prednisone daily until gone, take with food and/or milk to help prevent gastric refluxFollow up with your primary care provider in 3-5 days for reevaluationIf you do not have a primary care provider can establish with Dr. Jauregui or Dr. Moreno both are accepting new patientsContact information for Dr. Yuan Jauregui [phone] office located at [address] [place], [place] [id number] information for Dr. Moreno [phone] office located at [address] [place] [id number]:Low back strainComment: Normal [facility] ED Note - Physicianon 2016 ED Note - Physician Patient: MARISOL SKY : 26 years Sex: FEMALE : [birth year]Associated Diagnoses: Low back strainAuthor: Spasic PA, AleksandarBasic InformationTime seen: Date & time 12/03/16 13:23:00.History source: Patient.Arrival mode: Private vehicle.History limitation: None.History of Present IllnessPatient is 26-year-old female complaining of low back pain. Patient states she does a lot of bending and lifting at work. 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 States at that time felt pain did radiate into bilateral legs. States the radiation of pain has mostly resolved. Denies any numbness or tingling in the groin denies any loss of bowel or bladder. States the pain is better when she is in motion, states worse after sitting for long periods. Patient is not diabetic, is currently on her menstrual period. Patient with allergies to sugar-free gum.Review of SystemsMusculoskeletal symptoms: Back pain.Health StatusAllergies:Allergic Reactions (Selected)Severity Not DocumentedSugar free gum- No reactions were documented..Medications: (Selected)Documented MedicationsDocumentedProAir HFA 90 mcg/inh inhalation aerosol: 2 puff(s), INH, QID, PRN: as needed for wheezing, 0 Refill(s).Past Medical/ Family/ Social HistoryMedical history:No active or resolved past medical history items have been selected or recorded..Surgical history:No active procedure history items have been selected or recorded..Family history:No family history items have been selected or recorded..Social history:Social & Psychosocial NjqghhFprjaff83/12/2017 Smoking tobacco use: 4 or less cigarettes(less.Problem list:No qualifying data available.Physical Examination Vital SignsVital Signs12/03/16 13:22 EDT Temperature Temporal 36.7 DegC Peripheral Pulse Rate 78 bpm Respiratory Rate 18 br/min Systolic Blood Pressure 108 mmHg Diastolic Blood Pressure 68 mmHg.General: Alert, no acute distress.Skin: Warm, dry.Head: Normocephalic, atraumatic.Cardiovascular: Regular rate and rhythm.Respiratory: Lungs are clear to auscultation, respirations are non-labored.Back: Nontender, Normal range of motion, Minimally Positive straight leg raise at 75? bilaterally, per patient pain worse with left leg raise.Psychiatric: Cooperative, appropriate mood & affect.Medical Decision MakingOrders Launch OrdersPharmacy:Toradol (Order): 60 mg, IM, Once, Launch OrdersMiscellaneous Request:Excuse from Work/School (Order): 12/03/16 13:38 EDT.Physical exam findings a low back strain. Patient arrived with prednisone and Flexeril. Patient states she is currently on her menstrual period. Patient treated with Toradol IM in the urgent care. Did state to the patient and she should take a few days off to rest her back however states missing last few days off work and therefore does want to return tomorrow. Explained returning tomorrow. Exacerbate the symptoms and make the injury last longer. Patient stated would like to return to work tomorrow. Was provided with a note off for today and may return tomorrow should discontinue activities if the pain returns or worsens in any way.Impression and PlanDiagnosisLow back strain ([id number] S39.012A, Discharge, Medical)PlanPrescriptions: Launch prescriptionsPharmacy:cycloben zaprine 10 mg oral tablet (Prescribe): 10 mg, 1 tab(s), PO, Once a day (at bedtime), for 10 day(s), Do not drive or operate machinery when taking this medication, do not drink alcohol when taking this medication., PRN: for spasm, 15 tab(s), 0 Refill(s)predniSONE 50 mg oral tablet (Prescribe): 50 mg, 1 tab(s), PO, Daily, for 5 day(s), 5 tab(s), 0 Refill(s).Patient was given the following educational materials: Herniated Disk, Zdql-vy-Umbp, Back Pain, Adult, Ibfz-lo-Uwei.Follow up with: None ProviderContinue the Flexeril 10 mg before bed, do not drive or operate machinery when taking this medication,do not drink alcohol when taking this medication.Take 1 tab of prednisone daily until gone, take with food and/or milk to help prevent gastric refluxFollow up with your primary care provider in 3-5 days for reevaluationIf you do not have a primary care provider can establish with Dr. Jauregui or Dr. Moreno both are accepting new patientsContact information for Dr. Yuan Jauregui [phone] office located at [address] [place], [place] [id number] information for Dr. Moreno [phone] office located at [address] [place], [place] [id number].Counseled: Patient, Regarding diagnosis, Regarding diagnostic results, Regarding treatment plan, Regarding prescription, Patient indicated understanding of instructions.[Electronically Signed on: 12/03/2016 13:50 EDT] Max Gutierrez[Verified on: 12/03/2016 13:50 EDT] Max Gutierrez [facility] ED Patient Summaryon 017 ED Patient Summary [facility] ? Urgent [address] [place] [address] pATIENT DISCHARGE INSTRUCTIONSPatient InformationName: MARISOL SKY Age: 26 YearsDate of : [birth year]MRN: [id number] For Visit: UC - Back Pain; UC - Back Pain; lower back painArrival Time: 12/03/16 13:16:00Phone: Primary Care Physician: Provider, NoneAttending Physician: Evelyn GutierrezrComment:Patient EducationWith: Address: When:None ProviderComments:Continue the Flexeril 10 mg before bed, do not drive or operate machinery when taking this medication,do not drink alcohol when taking this medication.Take 1 tab of prednisone daily until gone, take with food and/or milk to help prevent gastric refluxFollow up with your primary care provider in 3-5 days for reevaluationIf you do not have a primary care provider can establish with Dr. Jauregui or Dr. Moreno both are accepting new patientsContact information for Dr. Yuan Jauregui [phone] office located at [address] [place] [id number] Moreno [phone] office located at [address] [place] [address]Xesi Pain, AdultBack pain is very common. The pain often gets better over time. The cause of back pain is usually not dangerous. Most people can learn to manage their back pain on their own. HOME CAREWatch your back pain for any changes. The following actions may help to lessen any pain you are feeling:? Stay active. Start with short walks on flat ground if you can. Try to walk farther each day.? Exercise regularly as told by your doctor. Exercise helps your back heal faster. It also helps avoid future injury by keeping your muscles strong and flexible.? Do not sit, drive, or regional trainer one place for more than 30 minutes.? Do not stay in bed. Resting more than 1?2 days can slow down your recovery.? Be careful when you bend or lift an object. Use good form when lifting:? Bend at your knees.? Keep the object close to your body.? Do not twist.? Sleep on a firm mattress. Lie on your side, and bend your knees. If you lie on your back, put a pillow under your knees.? Take medicines only as told by your doctor.? Put ice on the injured area.? Put ice in a plastic bag.? Place a towel between your skin and the bag.? Leave the ice on for 20 minutes, 2?3 times a day for the first 2?3 days. After that, you can switch between ice and heat packs.? Avoid feeling anxious or stressed. Find good ways to deal with stress, such as exercise.? Maintain a healthy weight. Extra weight puts stress on your back.GET HELP IF:? You have pain that does not go away with rest or medicine.? You have worsening pain that goes down into your legs or buttocks.? You have pain that does not get better in one week.? You have pain at night.? You lose weight.? You have a fever or chills.GET HELP RIGHT AWAY IF:? You cannot control when you poop (bowel movement) or pee (urinate).? Your arms or legs feel weak.? Your arms or legs lose feeling (numbness).? You feel sick to your stomach (nauseous) or throw up (vomit).? You have belly (abdominal) pain.? You feel like you may pass out (faint).This information is not intended to replace advice given to you by your health care provider. Make sure you discuss any questions you have with your health care provider.Document Released: 08/26/2008 Document Revised: 03/31/2015 Document Reviewed: 07/12/2014[employer] Interactive Patient Education ?2016 [employer]Herniated DiskA herniated disk occurs when a disk in your spine bulges out too far. Your spine (backbone) is made up of bones called vertebrae. A disk with a spongy center is located between each pair of bones. These disks act as shock absorbers when you move. A herniated disk can cause pain and muscle weakness. HOME CARE? Take all medicines as told by your doctor.? Rest for 2 days and then start moving.? Do not sit or stand for long periods of time.? Maintain good posture when sitting and standing.? Avoid moving in a way that causes pain, such as bending or lifting.? When you are able to start lifting things again:? Bend with your knees.? Keep your back straight.? Hold heavy objects close to your body.? If you are overweight, ask your doctor about starting a weight-loss program.? When you are able to start exercising, ask your doctor how much and what type of exercise is best for you.? Work with a physical therapist on stretching and strengthening exercises for your back.? Do not wear high-heeled shoes.? Do not sleep on your belly.? Do not smoke.? Keep all follow-up visits as told by your doctor.GET HELP IF:? You have back or neck pain that is not getting better after 4 weeks.? You have very bad pain in your back or neck.? You have a loss of feeling (numbness), tingling, or weakness along with pain.GET HELP RIGHT AWAY IF:? You have tingling, weakness, or loss of feeling that makes you unable to use your arms or legs.? You are not able to control when you pee (urinate) or poop (bowel movement).? You have dizziness or fainting.? You have shortness of breath.MAKE SURE YOU:? Understand these instructions.? Will watch your condition.? Will get help right away if you are not doing well or get worse.This information is not intended to replace advice given to you by your health care provider. Make sure you discuss any questions you have with your health care provider.Document Released: 07/25/2014 Document Reviewed: 07/25/2014Lyn Interactive Patient Education ?2016 [employer].Medication Information:The exam and treatment you received today in the [facility] Emergency Department were for an urgent problem and are not intended as complete care. It is important for you to follow up with a doctor, nurse practitioner, or physician?s chef's assistant for ongoing care. If your symptoms become worse or you do not improve as expected and you are unable to reach your usual health care provider, you should return to the Emergency Department, we are available 24 hours a day.For those patients who have received Radiology results, the interpretation of your X-ray as given to you by our Emergency Department physician is only a preliminary report. The Radiologist will review your films and if there is a change in the diagnosis you will be notified by phone. Please make sure you have provided a working phone number so we can reach you if necessary.In the event that you had a lab culture while you were a patient in the Emergency Department, you will be notified by phone if there is a need to change your antibiotic. Please make sure you have provided a working phone number so we can reach you if necessary.[facility] Emergency Department has provided you with a complete list of medications post discharge. Please inform your finisher tailor apprentice/provider of your visit and for further instruction on these medications. Any specific questions regarding your chronic medications and dosages should be discussed with your primary care physician(s) and/or pharmacist. New MedicationsPrinted Prescriptionscyclobenzaprine (cyclobenzaprine 10 mg oral tablet) 1 tab(s) Oral once a day (at bedtime) as needed for spasm for [address] or operate machinery when taking this medication, do not drink alcohol when taking this medication.. Refills: 0.predniSONE (predniSONE 50 mg oral tablet) 1 tab(s) Oral every day for 5 Days. Refills: 0.Medications to Continue That Have Not ChangedOther Medicationsalbuterol (ProAir HFA 90 mcg/inh inhalation aerosol) 2 puff(s) Inhalation 4 times a day as needed as needed for wheezing.Visit InformationVisit Diagnosis:Diagnoses This Visit Low back strain (S39.012A) UC - Back Pain ([id number]) UC - Back Pain ([id number])If you received any narcotics, sedation, or any other medication that causes drowsiness for the next 24 hours, unless otherwise directed:? Do not drive a car.? Do not operate machinery such as power tools, lawn mowers, drills, sewing machines, or stoves? Avoid alcoholic beverages and drugs for allergies, nerves, or sleep? Do not make important personal or business decisions or sign any legal documentsReason for Visit:lower back pain/stiffness after using sales floor manager Friday at homeAllergies:Substance Reaction Symptoms Type Commentssugar free gumVital Signs: Vitals and Measurements this Visit (last charted value for your 12/03/2016 visit) Vital Signs This Visit Temperature Temporal: 36.7 DegC Peripheral Pulse Rate: 78 bpm Respiratory Rate: 18 br/min Systolic Blood Pressure: 108 mmHg Diastolic Blood Pressure: 68 mmHgProblems List:Problem Onset CommentsAsthmaMajor Tests and Procedures:The following procedures and tests were performed during your ED visit.LaboratoryRadiologyCardi ology Viruses or BacteriaWhat?s got you sick?Antibiotics only treat bacterial infections. Viral illnesses cannot be treated with antibiotics. When an antibiotic is not prescribed, ask your healthcare professional for tips on how to relieve symptoms and feel better. Usual CauseIllnessVirusesBacteria Antibiotic NeededCold/Runny Nose NOBronchitis/Chest Cold (in otherwise healthy children and adults) NOWhooping Cough YesFlu NOStrep Throat YesSore Throat (except strep) NOFluid in the middle ear (otitis media with effusion) NOUrinary Tract Infection YesAntibiotics Aren?t Always the Answerwww.cdc.gov/getsmart GET SMART Know When Antibiotics Ritu.S. Department of Health and Human ServicesCenters for Disease Control and Prevention November 2013 Normal [facility] [address] 017 Urgent Care Record [facility] ? Urgent [address] [place] [address] pATIENT DISCHARGE INSTRUCTIONSPatient InformationName: MARISOL SKY Age: 26 YearsDate of : [birth year]MRN: [id number] For Visit: UC - Back Pain; UC - Back Pain; lower back painArrival Time: 12/03/16 13:16:00Phone: Primary Care Physician: Provider, NoneAttending Physician: Evelyn GutierrezrComment:Visit Diagnosis:Diagnoses This Visit Low back strain (S39.012A) UC - Back Pain ([id number]) UC - Back Pain ([id number])If you received any narcotics, sedation, or any other medication that causes drowsiness for the next 24 hours, unless otherwise directed:? Do not drive a car.? Do not operate machinery such as power tools, lawn mowers, drills, sewing machines, or stoves? Avoid alcoholic beverages and drugs for allergies, nerves, or sleep? Do not make important personal or business decisions or sign any legal documentsWith: Address: When:None ProviderComments:Continue the Flexeril 10 mg before bed, do not drive or operate machinery when taking this medication,do not drink alcohol when taking this medication.Take 1 tab of prednisone daily until gone, take with food and/or milk to help prevent gastric refluxFollow up with your primary care provider in 3-5 days for reevaluationIf you do not have a primary care provider can establish with Dr. Jauregui or Dr. Moreno both are accepting new patientsContact information for Dr. Yuan Jauregui [phone] office located at [address] [place], [place] [address]Contact information for Dr. Moreno [phone] office located at [address] [place] [id number] Information:The exam and treatment you received today in the [facility] were for an urgent problem and are not intended as complete care. It is important for you to follow up with a doctor, nurse practitioner, or physician?s chef's assistant for ongoing care. If your symptoms become worse or you do not improve as expected and you are unable to reach your usual health care provider, you should return to the Emergency Department, we are available 24 hours a day.For those patients who have received Radiology results, the interpretation of your X-ray as given to you by our Urgent Care physician is only a preliminary report. The Radiologist will review your films and if there is a change in the diagnosis you will be notified by phone. Please make sure you have provided a working phone number so we can reach you if necessary.In the event that you had a lab culture while you were a patient in the Urgent Care, you will be notified by phone if there is a need to change your antibiotic. Please make sure you have provided a working phone number so we can reach you if necessary.[facility] has provided you with a complete list of medications post discharge. Please inform your finisher tailor apprentice/provider of your visit and for further instruction on these medications. Any specific questions regarding your chronic medications and dosages should be discussed with your primary care physician(s) and/or pharmacist. New MedicationsPrinted Prescriptionscyclobenzaprine (cyclobenzaprine 10 mg oral tablet) 1 tab(s) Oral once a day (at bedtime) as needed for spasm for [address] or operate machinery when taking this medication, do not drink alcohol when taking this medication.. Refills: 0.predniSONE (predniSONE 50 mg oral tablet) 1 tab(s) Oral every day for 5 Days. Refills: 0.Medications to Continue That Have Not ChangedOther Medicationsalbuterol (ProAir HFA 90 mcg/inh inhalation aerosol) 2 puff(s) Inhalation 4 times a day as needed as needed for wheezing.Visit InformationAllergies:Substance Reaction Symptoms Type Commentssugar free gumVital Signs: Vitals and Measurements this Visit (last charted value for your 12/03/2016 visit) Vital Signs This Visit Temperature Temporal: 36.7 DegC Peripheral Pulse Rate: 78 bpm Respiratory Rate: 18 br/min Systolic Blood Pressure: 108 mmHg Diastolic Blood Pressure: 68 mmHgProblems List:Problem Onset CommentsAsthma Patient EducationBack Pain, AdultBack pain is very common. The pain often gets better over time. The cause of back pain is usually not dangerous. Most people can learn to manage their back pain on their own. HOME CAREWatch your back pain for any changes. The following actions may help to lessen any pain you are feeling:? Stay active. Start with short walks on flat ground if you can. Try to walk farther each day.? Exercise regularly as told by your doctor. Exercise helps your back heal faster. It also helps avoid future injury by keeping your muscles strong and flexible.? Do not sit, drive, or regional trainer one place for more than 30 minutes.? Do not stay in bed. Resting more than 1?2 days can slow down your recovery.? Be careful when you bend or lift an object. Use good form when lifting:? Bend at your knees.? Keep the object close to your body.? Do not twist.? Sleep on a firm mattress. Lie on your side, and bend your knees. If you lie on your back, put a pillow under your knees.? Take medicines only as told by your doctor.? Put ice on the injured area.? Put ice in a plastic bag.? Place a towel between your skin and the bag.? Leave the ice on for 20 minutes, 2?3 times a day for the first 2?3 days. After that, you can switch between ice and heat packs.? Avoid feeling anxious or stressed. Find good ways to deal with stress, such as exercise.? Maintain a healthy weight. Extra weight puts stress on your back.GET HELP IF:? You have pain that does not go away with rest or medicine.? You have worsening pain that goes down into your legs or buttocks.? You have pain that does not get better in one week.? You have pain at night.? You lose weight.? You have a fever or chills.GET HELP RIGHT AWAY IF:? You cannot control when you poop (bowel movement) or pee (urinate).? Your arms or legs feel weak.? Your arms or legs lose feeling (numbness).? You feel sick to your stomach (nauseous) or throw up (vomit).? You have belly (abdominal) pain.? You feel like you may pass out (faint).This information is not intended to replace advice given to you by your health care provider. Make sure you discuss any questions you have with your health care provider.Document Released: 08/26/2008 Document Revised: 03/31/2015 Document Reviewed: 07/12/2014[employer] Patient Education ?2016 [employer].Herniated DiskA herniated disk occurs when a disk in your spine bulges out too far. Your spine (backbone) is made up of bones called vertebrae. A disk with a spongy center is located between each pair of bones. These disks act as shock absorbers when you move. A herniated disk can cause pain and muscle weakness. HOME CARE? Take all medicines as told by your doctor.? Rest for 2 days and then start moving.? Do not sit or stand for long periods of time.? Maintain good posture when sitting and standing.? Avoid moving in a way that causes pain, such as bending or lifting.? When you are able to start lifting things again:? Bend with your knees.? Keep your back straight.? Hold heavy objects close to your body.? If you are overweight, ask your doctor about starting a weight-loss program.? When you are able to start exercising, ask your doctor how much and what type of exercise is best for you.? Work with a physical therapist on stretching and strengthening exercises for your back.? Do not wear high-heeled shoes.? Do not sleep on your belly.? Do not smoke.? Keep all follow-up visits as told by your doctor.GET HELP IF:? You have back or neck pain that is not getting better after 4 weeks.? You have very bad pain in your back or neck.? You have a loss of feeling (numbness), tingling, or weakness along with pain.GET HELP RIGHT AWAY IF:? You have tingling, weakness, or loss of feeling that makes you unable to use your arms or legs.? You are not able to control when you pee (urinate) or poop (bowel movement).? You have dizziness or fainting.? You have shortness of breath.MAKE SURE YOU:? Understand these instructions.? Will watch your condition.? Will get help right away if you are not doing well or get worse.This information is not intended to replace advice given to you by your health care provider. Make sure you discuss any questions you have with your health care provider.Document Released: 07/25/2014 Document Reviewed: 07/25/2014[employer] Patient Education ?2016 [employer]. Viruses or BacteriaWhat?s got you sick?Antibiotics only treat bacterial infections. Viral illnesses cannot be treated with antibiotics. When an antibiotic is not prescribed, ask your healthcare professional for tips on how to relieve symptoms and feel better. Usual CauseIllnessVirusesBacteria Antibiotic NeededCold/Runny Nose NOBronchitis/Chest Cold (in otherwise healthy children and adults) NOWhooping Cough YesFlu NOStrep Throat YesSore Throat (except strep) NOFluid in the middle ear (otitis media with effusion) NOUrinary Tract Infection YesAntibiotics Aren?t Always the Answerwww.cdc.gov/getsmart GET SMART Know When Antibiotics [place] Department of Health and Human ServicesCenters for Disease Control and Prevention November 2013 [facility] Vital Signs Date Time Vital Sign Value Performing Clinician Faci lity 07-26-2021 14:50-0400 Body height 173.99 cm Chuy Gillespie DEADENER Work Phone: [facility] Work Phone: 07-26-2021 14:50-0400 Body mass index (BMI) [Ratio] 28.7 kg/m2 Chuy Gillespie DEADENER Work Phone: [facility] Work Phone: 07-26-2021 14:50-0400 Body surface area Derived from formula 2.02 m2 Chuy Gillespie DEADENER Work Phone: [facility] Work Phone: 07-26-2021 14:50-0400 Body temperature 98.1 [degF] Chuy Gillespie DEADENER Work Phone: [facility] Work Phone: 07-26-2021 14:50-0400 Body weight 86.82 kg Chuy Gillespie CNP Work Phone: [facility] Work Phone: 07-26-2021 14:50-0400 Diastolic blood pressure 86 mm[Hg] Chuy Gillespie CNP Work Phone: [facility] Work Phone: 07-26-2021 14:50-0400 Heart rate 85 /min Chuy Gillespie CNP Work Phone: [facility] Work Phone: 07-26-2021 14:50-0400 SaO2% (BldA) [Mass fraction] 98 % Chuy Gillespie CNP Work Phone: [facility] Work Phone: 07-26-2021 14:50-0400 Systolic blood pressure 134 mm[Hg] Chuy Gillespie CNP Work Phone: [facility] Work Phone: 06-29-2021 15:28-0400 Body height 173.99 cm Chuy Gillespie CNP Work Phone: [facility] Work Phone: 06-29-2021 15:28-0400 Body mass index (BMI) [Ratio] 28 kg/m2 Chuy Gillespie CNP Work Phone: [facility] Work Phone: 06-29-2021 15:28-0400 Body surface area Derived from formula 2 m2 Chuy Gillespie CNP Work Phone: [facility] Work Phone: 06-29-2021 15:28-0400 Body temperature 98.9 [degF] Chuy Gillespie CNP Work Phone: [facility] Work Phone: 06-29-2021 15:28-0400 Body weight 84.73 kg Chuy Gillespie CNP Work Phone: [facility] Work Phone: 06-29-2021 15:28-0400 Diastolic blood pressure 78 mm[Hg] Chuy Gillespie CNP Work Phone: [facility] Work Phone: 06-29-2021 15:28-0400 Heart rate 91 /min Chuy Gillespie CNP Work Phone: [facility] Work Phone: 06-29-2021 15:28-0400 SaO2% (BldA) [Mass fraction] 98 % Chuy Gillespie CNP Work Phone: [facility] Work Phone: 06-29-2021 15:28-0400 Systolic blood pressure 100 mm[Hg] Chuy Gillespie CNP Work Phone: [facility] Work Phone: 06-21-2021 13:15-0400 Body height 173.99 cm Chuy Gillespie CNP Work Phone: [facility] Work Phone: 06-21-2021 13:15-0400 Body mass index (BMI) [Ratio] 27.8 kg/m2 Chuy Gillespie CNP Work Phone: [facility] Work Phone: 06-21-2021 13:15-0400 Body surface area Derived from formula 1.99 m2 Chuy Gillespie CNP Work Phone: [facility] Work Phone: 06-21-2021 13:15-0400 Body temperature 98.6 [degF] Chuy Gillespie CNP Work Phone: [facility] Work Phone: 06-21-2021 13:15-0400 Body weight 84.28 kg Chuy Gillespie CNP Work Phone: [facility] Work Phone: 06-21-2021 13:15-0400 Diastolic blood pressure 80 mm[Hg] Chuy Gillespie DEADENER Work Phone: [facility] Work Phone: 06-21-2021 13:15-0400 Heart rate 88 /min Chuy Gillespie DEADENER Work Phone: [facility] Work Phone: 06-21-2021 13:15-0400 SaO2% (BldA) [Mass fraction] 98 % Chuy Gillespie CNP Work Phone: [facility] Work Phone: 06-21-2021 13:15-0400 Systolic blood pressure 118 mm[Hg] Chuy Gillespie CNP Work Phone: [facility] Work Phone: 06-15-2021 13:01-0400 Body temperature 97.39 [degF] [facility] 06-15-2021 13:01-0400 Diastolic blood pressure 79 mm[Hg] Matilde Franklin MD Work Phone: [employer] 06-15-2021 13:01-0400 Heart rate 75 /min Matilde Franklin MD Work Phone: [employer] 06-15-2021 13:01-0400 Respiratory rate 16 /min Matilde Franklin MD Work Phone: [employer] 06-15-2021 13:01-0400 SaO2% (BldA) [Mass fraction] 97 % Matilde Franklin MD Work Phone: [employer] [facility] 06-15-2021 13:01-0400 Systolic blood pressure 108 mm[Hg] Matilde Franklin MD Work Phone: [facility] 06-15-2021 11:05-0400 Body height 172.7 cm Matilde Franklin MD Work Phone: [facility] 06-15-2021 01:15-0400 Body mass index (BMI) [Ratio] 28.96 kg/m2 Matilde Franklin MD Work Phone: [facility] 06-15-2021 01:15-0400 Body weight 86.4 kg Matilde Franklin MD Work Phone: [facility] Encounters Encounter Date Encounter Type Care Provider Facility Start: 06-16-2023 End: 06-17-2023 ambulatory FRANCK [facility] Start: 07-26-2021 End: 07-26-2021 [facility] visit, estab pt Chuy Gillespie DEADENER Work Phone: [facility] Work Phone: Start: 06-29-2021 End: 06-29-2021 [facility] visit, estab pt Chuy Gillespie DEADENER Work Phone: [facility] Work Phone: Start: 06-22-2021 End: 06-25-2021 ambulatory [facility] Start: 06-22-2021 End: 06-24-2021 Subsequent hospital visit by physician Mth Mri Scanner [facility] MRI Comment on above: Hemianopia of left e ye Start: 06-21-2021 End: 06-21-2021 [facility] visit, estab pt Crista Martin [facility] Work Phone: [facility] Work Phone: Start: 06-21-2021 End: 06-21-2021 [facility] visit new patient Chuy Gillespie CNP Work Phone: [facility] Work Phone: Start: 06-21-2021 End: 06-21-2021 General Chuy Gillespie CNP Work Phone: [facility] Work Phone: Start: 06-14-2021 End: 06-15-2021 ambulatory LAURENSUHAS Benedict AKUA [facility] Start: 06-14-2021 End: 06-15-2021 Evaluation and management of inpatient Matilde Franklin MD Work Phone: [facility] Comment on above: Acute nonintractable headache, unspecified headache type (Primary Dx); Quadrantanopia of left eye; Hemianopia of left eye Start: 08-09-2017 Ambulatory None Provider Facility: [facility] Start: 12-03-2016 End: 12-03-2016 Ambulatory Max Spasic Facility:[facility] Procedures Date Procedure Procedure Detail Performing Clinician Start: 07-26-2021 Most recent diastoli c blood pressure 80-89 mm hg Chuy Gillespie DEADENER Work Phone: Start: 07-26-2021 Most recent systolic blood press 130-139mm hg Chuy Gillespie DEADENER Work Phone: Start: 06-29-2021 Most recent diastoli c blood pressure < 80 mm hg Chuy Gillespie DEADENER Work Phone: Start: 06-29-2021 Most recent systolic blood pressure <130 mm hg Chuy Gillespie DEADENER Work Phone: Start: 06-22-2021 Mri brain brain stem w/o w/contrast material Jame Celaya [facility] Work Phone: Start: 06-21-2021 Antibody hiv-1&hiv-2 single result Chuy Gillespie DEADENER Work Phone: Start: 06-21-2021 Gluc bld gluc mntr d ev cleared fda spec home use Chuy Gillespie DEADENER Work Phone: Start: 06-21-2021 Most recent diastoli c blood pressure 80-89 mm hg Chuy Gillespie DEADENER Work Phone: Start: 06-21-2021 Most recent hemoglob in a1c level < 7.0% Chuy Gillespie CNP Work Phone: Start: 06-21-2021 Most recent systolic blood pressure <130 mm hg Chuy Gillespie DEADENER Work Phone: Start: 06-21-2021 Surgical procedure Darron Gillespie CNP Work Phone: Start: 06-15-2021 Diagnostic lumbar sp inal puncture Matilde Franklin MD Work Phone: Start: 06-14-2021 Cell count misc body fluids w/differential count Matilde Franklin MD Work Phone: Start: 06-14-2021 Cul bact xcpt urine blood/stool aerobic isol Matilde Franklin MD Work Phone: Start: 06-14-2021 Glucose body fluid o ther than blood Matilde Franklin MD Work Phone: Start: 06-14-2021 Radiologic exam ches t single view Matilde Franklin MD Work Phone: Start: 06-14-2021 Ct angiography neck w/contrast/noncontrast Matilde Franklin MD Work Phone: Start: 06-14-2021 End: 06-14-2021 Ct head/brain w/o contrast material Matilde Franklin MD Work Phone: Start: 06-14-2021 Ecg routine ecg w/le ast 12 lds w/i&r Matilde Franklin MD Work Phone: Start: 06-14-2021 Basic metabolic pane l calcium total Matilde Franklin MD Work Phone: Start: 06-14-2021 Urinalysis microscop ic only Matilde Franklin MD Work Phone: Start: 06-14-2021 Urnls dip stick/tabl et rgnt auto w/o microscopy Matilde Franklin MD Work Phone: Plan of Treatment Date Care Activity Detail Author Start: 07-26-2022 [facility]QHC visit, estab pt Medical E stablished Patient [facility] Work Phone: Start: 11-22-2021 Influenza vaccination Flu vacc ine (Season Ended) [facility] Start: 07-30-2021 Emergency department patient visit Dental Emergency [facility] Work Phone: Start: 07-29-2021 Thyrotropin [Units/volume] in Serum or Plasma [facility] Start: 07-19-2021 FQHC visit, estab pt Medical E stablished Patient [facility] Work Phone: Start: 06-26-2021 C-reactive protein [facility] Start: 06-26-2021 Lipid 1996 panel - S milagros or Plasma LIPID PROFILE [facility] Start: 06-26-2021 Thyrotropin [Units/volume] in Serum or Plasma TSH [facility] Start: 06-22-2021 End: 06-15-2022 MRI BRAIN W WO CONTRAST MRI BRAIN W WO CONTRAST Imaging Routine Hemianopia of left eye Expected: 06/22/2021, Expires: 06/15/2022 [facility] Work Phone: Comment on above: Expected: 06/22/2021 , Expires: 06/15/2022 Start: 06-21-2021 Neurology [facility] Work Phone: Comment on above: Note: Please make a referral to: fidel Start: 2021 Screening for malign ant neoplasm of cervix [facility] Start: 11-22-2020 Influenza vaccination Flu vaccine (# 1) [facility] Start: 01-07-2017 DTaP/Tdap/Td vaccine (2 - Td or Tdap) DTaP/Tdap/Td vaccine (2 - Td or Tdap) [facility] Start: 01-14-2012 Screening for malign ant neoplasm of cervix Pap smear [facility] Start: 2010 DTaP/Tdap/Td vaccine (1 - Tdap) DTaP/Tdap/Td vaccine (1 - Tdap) [facility] Start: 02-04-2007 Varicella vaccine (2 of 2 - 13+ 2-dose series) Varicella vaccine (2 of 2 - 13+ 2-dose series) [facility] Start: 2006 [facility] Start: 2003 Depression Screen Depression Screen [facility] Start: 1997 Pneumococcal 0-64 ye ars Vaccine (1 of 2 - PPSV23) Pneumococcal 0-64 years Vaccine (1 of 2 - PPSV23) [facility] Start: 01-14-1996 COVID-19 Vaccine (1) COVID-19 Vaccin e (1) [facility] Start: 01-14-1992 Varicella vaccine (1 of 2 - 2-dose childhood series) Varicella vaccine (1 of 2 - 2-dose childhood series) [facility] Start: 1991 Hepatitis C screening Hepatitis C sc [facility] Culture, CSF Culture, CSF Microbiology STAT 06/14/2021 11:40 PM EDT [facility] [employer] Work Phone: EKG 12 Lead EKG 12 Lead ECG STAT 06/14/2021 8:56 PM EDT [facility] Work Phone: End: 06-15-2021 MRI BRAIN W WO CONTRAST MRI BRAIN W WO CONTRAST Imaging Routine Once for 1 Occurrences starting 06/15/2021 until 06/15/2021 [facility] [employer] Phone: Comment on above: Once for 1 Occurrenc es starting 06/15/2021 until 06/15/2021 Immunizations Immunization Date Immunization Notes Care Provider Shannan jean 12-22-2013 influenza, seasonal, injectable Chuy Gillespie [facility] Work Phone: [facility] Work Phone: 04-07-2007 human papilloma viru s vaccine, quadrivalent Chuy Santacruzen DEADENER Work Phone: [facility] Work Phone: 01-07-2007 human papilloma viru s vaccine, quadrivalent Chuy Gillespie DEADENER Work Phone: [facility] Work Phone: 01-07-2007 tetanus toxoid, redu margareth diphtheria toxoid, and acellular pertussis vaccine, adsorbed Chuy Gillespie CNP Work Phone: [facility] Work Phone: 01-07-2007 varicella virus vaccine Darron Gillespie CNP Work Phone: [facility] Work Phone: 06-24-2004 hepatitis B vaccine, pediatric or pediatric/adolescent dosage Chuy Gillespie CNP Work Phone: [facility] Work Phone: 04-21-2001 hepatitis B vaccine, pediatric or pediatric/adolescent dosage Chuy Gillespie CNP Work Phone: [facility] Work Phone: 06-14-1999 hepatitis B vaccine, pediatric or pediatric/adolescent dosage Chuy Gillespie CNP Work Phone: [facility] Work Phone: 12-26-1995 measles, mumps and rubella virus vaccine Chuy Gillespie DEADENER Work Phone: [facility] Work Phone: 01-11-1994 measles, mumps and rubella virus vaccine Chuy Gillespie CNP Work Phone: [facility] Work Phone: Payers Date Payer Category Payer Unknown [id number] 2016 Unknown [id number] 1991 Unknown [id number] 1991 Unknown [id number] Private Health Insurance [address] [place] [address] [id number] Self-pay [id number] Social History Date Type Detail Facility Start: 06-14-2021 Tobacco smoking status NHIS Smokes tobacco daily [employer] Phone: Start: 06-14-2021 Cigarettes smoked current (pack per day) - Reported 0.25 [employer] Phone: Start: 06-14-2021 Tobacco use and exposure Smokeless tobacco non-user [employer] Phone: Start: 06-15-2021 Alcohol intake Current drinke r of alcohol (finding) [employer] Phone: Start: 06-14-2021 History SDOH Alcohol Frequency 1 [employer] Phone: Start: 06-15-2021 History SDOH Alcohol Comment 6 beer every 2weeks [employer] Phone: Start: 1990 Sex Assigned At Not on file [employer] Phone: Start: 06-04-2021 End: 06-14-2021 Exposure to SARS-CoV-2 (event) Not sure [employer] Phone: Assertion Social drinker (finding) [facility] Work Phone: Assertion Currently not se xually active (finding) [facility] Work Phone: Assertion Ex-smoker (finding) [facility] [employer] [facility] Work Phone: Assertion Gender identity finding (finding) [facility] Work Phone: Start: 05-22-2021 Assertion Quit date 05/22/2021 Hea lt [employer] Work Phone: Assertion Exposure to poll ution (event) [facility] Work Phone: Assertion Finding of sexua l orientation (finding) [facility] Work Phone: Tobacco smoking status Unknown if ever smoked [facility] Work Phone: Assertion Lives alone (finding) [facility] Work Phone: Assertion Full-time employ ment (finding) [facility] Work Phone: Assertion Stress (finding) [facility] [employer] [facility] [facility] Work Phone: NEGATED: Highlighted row Assertion Finding relating to drug misuse behavior (finding) [facility] Work Phone: NEGATED: Highlighted row Assertion Exposure to pollution (event) [facility] Work Phone: NEGATED: Highlighted row Assertion Not a current tobacco user [facility] Work Phone: Mental Status Date Assessment Result Facility Cognitive function Cognitive fun ctioning was normal Cognitive function finding (finding) [facility] Work Phone: Clinical Notes 06-15-2021 to 07-26-2021 Note Date & Type Note Facility 07-26-2021 Evaluation note Includes: Assessments for all patient encounters Findings No cough Medical Established Patient with Chuy Gillespie [facility] 07/26/2021 Z68.28 - Body mass index [BM I] 28.0-28.9, adult Medical Established Patient with Chuy Gillespie [facility] 07/26/2021 Z68.28 - Body mass index [BM I] 28.0-28.9, adult Medical Established Patient with Chuy Gillespie [facility] 06/29/2021 Panic disorder without agoraphobia Established Patient with Crista Martin [facility] 06/21/2021 Diabetes Risk Test Score was two score 06/21/2021 Medical New Patient with Chuy Gillespie [facility] 06/21/2021 Migraine headache Medical New Patient with Chuy Mg [facility] 06/21/2021 Visit for: screening for hum an immunodeficiency virus Medical New Patient with Chuy Gillespie [facility] 06/21/2021 Z68.27 - Body mass index [BM I] 27.0-27.9, adult Medical New Patient with Chuy Gillespie [facility] 06/21/2021 [facility] Work Phone: 1(862) 388-531203-31-2022 Evaluation note Includes: Assessments for all patient encounters Findings Encounter Date Panic disorder without agoraphobia BH Es tablished Patient with Crista Martin [facility] 06/21/2021 Diabetes Risk Test Score was two score 06/21/2021 Medical New Patient with Chuy Gillespie [facility] 06/21/2021 Migraine headache Medical New Patient with Chuy Gillespie [facility] 06/21/2021 Visit for: screening for hum an immunodeficiency virus Medical New Patient with Chuy Gillespie [facility] 06/21/2021 Z68.27 - Body mass index [BM I] 27.0-27.9, adult Medical New Patient with Chuy Gillespie [facility] 06/21/2021 [facility] Work Phone: 1(506) 779-443403-31-2022 History general Narrative - Reported Includes: Medical History in patient's chart Description Last Updated History of extraction of wisdom tooth History of asthma 06/21/2021 History of depression 06/21/2021 History of migraine headache 06/21/2021 History of thyroid disorder overactive 0 06/21/2021 [facility] Work Phone: 1(402) 640-804203-25-2022 History of Present illness Narrative* Heavenly Bland - 06/15/2021 1:43 PM EDT Discharge instructions provided to pt at this time. IV removed. All questions answered. Walking outto car at this time * Heavenly Bland - 06/15/2021 1:01 PM EDT Patient awake and in bed. C/o headache still. Will check MAR for tylenol due time. Patient given a list of PCPs to choose from, informed social work of patient choice. Patient expressed frustration for waiting for MRI all day. Informed patient that RN called MRI to figure out what time, left a message with MRI to call back with time. Discussed this conversation with Jame BOWER. Denies any needs. Will continue to monitor. * Lyudmila Mcgowan RD, LD - 06/15/2021 11:05 AM EDT Nutrition Assessment Type and Reason for Visit: Initial Nutrition Recommendations/Plan: continue current diet Nutrition Assessment: Overweight/obesity r/t excess energy intakes aeb BMI 28.96. Pt trying to sleep per Pastoral Care. Malnutrition Assessment: Malnutrition Status: Insufficient data Nutrition Related Findings: unable to assess due to darkened room, Pt asleep Current Nutrition Therapies: ADULT DIET; Regular Anthropometric Measures: Height: 5' 8 (172.7 cm) Current Body Wt: 190 lb 7.6 oz (86.4 kg) BMI: 29 Nutrition Diagnosis: Overweight/Obese related to excessive energy intake as evidenced by BMI Nutrition Interventions: Food and/or Nutrient Delivery: Continue Current Diet Nutrition Education/Counseling: No recommendation at this time Coordination of Nutrition Care: Continue to monitor while inpatient Goals: PO > 75% of meals Recent Labs 06/14/212036 NA 138 K 3.9 CL 103 CO2 25 BUN 11 CREATININE 0.63 GLUCOSE 85 GFR No results found for: LABALBU Nutrition Monitoring and Evaluation: Behavioral-Environmental Outcomes: None Identified Food/Nutrient Intake Outcomes: Food and Nutrient Intake Physical Signs/Symptoms Outcomes: Biochemical Data,Weight Discharge Planning: Continue current diet Contact: [phone] * Heavenly Bland - 06/15/2021 9:00 AM EDT Patient walking in hallway at this time. Stopped at the nurses station and asked that she not receive calls nor have visitors. Phone unplugged from room and sign posted on door. Will continue to monitor. * Heavenly Bland - 06/15/2021 8:40 AM EDT Patient given MRI form to fill out at this time. * Heavenly Bland - 06/15/2021 7:10 AM EDT Patient awake and in bed. VS and assessment completed. Patient C/o headache and slight blurred vision in left eye, with some light/noise sensivity. Denies any other complaints. Patient ambulates independently in room. Food menu provided per request. Denies any other needs. Will continue to monitor. * Ana Boswell RN - 06/15/2021 1:15 AM EDT Patient admitted to floor at this time, now located in room 333. Admission assessment an vitals completed, patient's pupils are both equal, round, and reactive to light. Patient has no questions or concerns at this time. Will continue to monitor patient. documented in this [facility] Phone: evaluation note* Diagnosis Hemianopia of left eye- Primary Acute nonintractable headache, unspecified headache type Quadrantanopia of left eye Ophthalmic migraine Other forms of migraine, without mention of intractable migraine without mention of status migrainosus documented in this encounter [employer] Phone: evaluation note* Diagnosis Hemianopia of left eye documented in this encounter [employer] Phone: History of Present illness Narrative History of Present Illness not supported for this document type No History of Present Illness [facility] Work Phone: Hospital Discharge instructions* Instructions* Heavenly Bland - 06/15/2021 Please follow up with MRI outpt documented in this encounter[facility] Phone: Instructions Instructions not supported for this document type No Instructions [facility] Work Phone: Patient problem outcome Narrative Includes: Evaluations & Outcomes for active Goals No Outcomes [facility] Work Phone: Reason for referral (narrative)No Reason for Referral [facility] Work Phone: Review of systems Narrative - Reported Review of Systems not supported for this document type No Review of Systems [facility] Work Phone: Summary Purpose Family History No Family History Records Found Description Last Updated father passed from brain annyeurism 05/24 Family history of oncologic disorder mat ernal grandmother ovarian 06/21/2021 Family history of systemic hypertension maternal grandparents 06/21/2021 Family history of type 2 diabetes mellit us maternal grandmother 06/21/2021 Fraternal history of type 2 diabetes sylvain litus 06/21/2021 Maternal history of oncologic disorder o varian 06/21/2021 Maternal history of systemic hypertensio n 06/21/2021 Paternal history of psychiatric disorder s 06/21/2021 Sororal history of systemic hypertension 06/21/2021 Advance Directives No Advanced Directives Records Found Includes: Current Advance Directives No Advance Directives RecordedNo Advanced Directives Records Found Includes: Current Advance Directives No Advance Directives RecordedNo Advanced Directives Records Found Reason for Referral Specialty Diagnoses / Procedures Referred By Noreen whyte Referred To Contact Radiology Diagnoses Hemianopia of left eye Procedures MRI BRAIN W WO CONTRAST Jame Celaya, [employer] [address] [facility] [place] [address] Referral ID Status Reason Start Date Expiration Date Visits Re quested Visits Authorized [id number] Open 06/22/2021 06/22/2022 1 1 Physical Exam Physical Exam not supported for this document type No Physical Exam Recorded Physical Exam not supported for this document type No Physical Exam Recorded Additional Source Comments INFORMATION SOURCE (unrecogn ized section and content) DATE CREATED AUTHOR 09/10/2017 [facility] DATE CREATED AUTHOR AUTHOR'S ORGANIZ ATION 06/25/2021 Ale guy DATE CREATED AUTHOR AUTHOR'S ORGANIZ ATION 06/18/2023 [facility] Reason for Visit (unrecogniz ed section and content) Reason Comments Migraine x3 weeks; has tried many home remidies with out sucess; Father from ruptured anuerysm and patient is concerned Loss of Vision left eye only Specialty Diagnoses / Procedures Referred By Noreen whyte Referred To Contact Radiology Diagnoses Hemianopia of left eye Procedures MRI BRAIN W WO CONTRAST MRI BRAIN W WO CONTRAST Jame Celaay, [employer] [address] [facility] [place] [address] Referral ID Status Reason Start Date Expiration Date Visits Re quested Visits Authorized [id number] Closed 06/20/2021 07/19/2021 1 1 Ordered Prescriptions (unrec ognized section and content) Prescription Sig Dispensed Refills Start Date End Da te SUMAtriptan (IMITREX) 100 MG tablet Take 1 tablet by mouth once as needed for Migraine 9 tablet 3 06/15/2021 Scheduled Active and Recently Administ ered Medications (unrecognized section and content) Medication Order 06/13/2021 06/14/2021 06/15/2021 aspirin chewable tablet 324 mg (COMPLETED) 324 mg, Oral, ONCE, 1 dose, On Fri06/15/21 at 0015 0013 (Given - Provid er: Silvia Anthony RN) enoxaparin (LOVENOX) injection 40 mg 40 mg, SubCUTAneous, DAILY, First dose on Fri06/15/21 at 0900, Until Discontinued 0813 (Given - Provid er: Heavenly Bland) ketorolac (TORADOL) injection 30 mg (COMPLETED) Ketorolac is contraindicated in patients with advanced renal impairment and in patients at risk of renal failure due to volume depletion. For 65 years of age and older OR weight less than 50 kg, use 15 mg IV every 6 hours; MAX dose: 60 mg/day. Dose greater than 30 mg must be administered via intramuscular route. Do not administer for more than 5 days., 30 mg, IntraVENous, ONCE, 1 dose, On Kassie 06/14/21 at 2315, Do not administer for more than 5 days. 0005 (Given - Provid er: Thom Quintero RN) lactated ringers infusion 1,000 mL (COMPLETED) 1,000 mL, IntraVENous, at 1,000 mL/hr, ONCE, On Kassie 06/14/21 at 2030, For 1 dose 2120 (New Bag - Provider: Thom Quintero RN) 0058 (Stopped - Provider: Silvia Anthony RN) lidocaine 1 % injection 20 mL 20 mL, IntraDERmal, ONCE, 1 dose, On Fri06/15/21 at 0015 0015 (Due) PRN Medication Order 06/13/2021 06/14/2021 06/15/2021 acetaminophen (TYLENOL) tablet 650 mg 650 mg, Oral, EVERY 6 HOURS PRN, Starting on Fri06/15/21 at 0808, Until Discontinued, Pain Mild (1-3), Pain Moderate (4-6), Maximum dose of acetaminophen is 4000 mg from all sources in 24 hours. 0813 (Given - Provid er: Heavenly Bland) iopamidol (ISOVUE-370) 76 % injection 75 mL (COMPLETED) 75 mL, IntraVENous, IMG ONCE PRN, 1 dose, Starting on Kassie 06/14/21 at 2102, Until Kassie 06/14/21 at 2105, Other 210 (Given - Provider: Matilde Varma) No Frequency Medication Order 06/13/2021 06/14/2021 06/15/2021 lidocaine 1 % injection (COMPLETED) 1 dose, Starting on Kassie 06/14/21 at 2325, Until Fri06/15/21 at 1129, Thom Quintero: cabinet override, Thom Quintero: cabinet override 0000 (Given by Other - Provider: Thom Quintero RN - Comment: Given by Dr. Franklin) FOR RECORDS PERTAINING TO PATIENTS WHO ARE OR HAVE BEEN ENROLLED IN A CHEMICAL DEPENDENCY/SUBSTANCEABUSE PROGRAM, SOME INFORMATION MAY BE OMITTED. This clinical summary was aggregated from multiple sources. Caution should be exercised in using it in the provision of clinical care. This summary normalizes information from multiple sources, and as a consequence, information in this document may materially change the coding, format and clinical context of patient data. In addition, data may be omitted in some cases. CLINICAL DECISIONS SHOULD BE BASED ON THE PRIMARY CLINICAL RECORDS. [employer] [facility]. provides no warranty or guarantee of the accuracy or completeness of information in this document.
--- NOTE | 2024-11-19 23:09 | ED_ITS ---
HPI - Dizziness General Chief Complaint: Dizziness Stated Complaint: DIZZY, SOB, JITTERY Time Seen by Provider: 11/19/24 22:53 Source: patient Mode of arrival: walk-in Limitations: no limitations History of Present Illness HPI Narrative: states she woke up about 5-6 hours ago and felt jittery. mild headache. States her sister is staying with her with the cat and she is stuffy because of the cat. [place] off balance. Room not spinning. No fever, nausea or ear pain. Left work to come her but wants to go back to work Related Data Allergies Allergy/AdvReac Type Severity Reaction Status Date / Time No Known Drug Allergies Allergy Verified 04/16/23 13:56 Review of Systems ROS0 Status of ROS 10 or more systems reviewed and unremark able except as noted in history and below PFSH [facility] Social History Smoking status: Never smoker Little interest or pleasure in doing things: not at all Feeling down, depressed, or hopeless: not at all Exam Constitutional Vital Signs, click to edit/add: Last Vital Signs Temp 98.2 F 11/19/24 23:33 Pulse 97 H 11/19/24 23:20 Resp 13 11/19/24 23:20 BP 121/87 11/19/24 23:05 Pulse Ox 96 11/19/24 22:53 O2 Del Method Room Air 11/19/24 22:53 Common normals: no apparent distress, average body habitus, oriented x3, no limitations, healthy appearing, alert and well nourished [facility] Common normals: normocephalic and head/scalp atraumatic Eye Common normals: PERRL, EOMs intact bilaterally and conjunctivae normal Respiratory Common normals: normal respiratory effort, no retractions, no use of accessory muscles and clear to auscultation bilaterally Cardio Common normals: regular rate, regular rhythm, S1 normal heart sound and S2 normal heart sound GI Common normals: Normal to inspection, nondistended, normoactive bowel sounds present, soft to palpation and non-tender Extremity Common normals: normal to inspection Neuro Common normals: oriented x3, CN's II-XII intact bilaterally, moves all extremities and no focal motor deficits Psych Appearance: grossly normal Course Vital Signs Vital signs: Vital Signs Pulse Rate 86 11/19/24 22:53 Respiratory Rate 20 11/19/24 22:53 Blood Pressure 149/100 H 11/19/24 22:53 Pulse Oximetry 96 11/19/24 22:53 Oxygen Delivery Method Room Air 11/19/24 22:53 Temperature 98.2 F 11/19/24 23:33 Pulse Rate 97 H 11/19/24 23:20 Respiratory Rate 13 11/19/24 23:20 Blood Pressure 121/87 11/19/24 23:05 Pulse Oximetry 96 11/19/24 22:53 Oxygen Delivery Method Room Air 11/19/24 22:53 MDM - Dizziness MDM Narrative Medical decision making narrative: patient presents with complaint of feeling jittery and dizzy. exam unremarkable except for nasal stuffiness related to allergy to her sister cat. Sister is now staying with the patient. Urine drug screen positive for marijana and cocaine. Patient admits to smoking marijuana but states she does not use cocaine. Patient informed of her urine drug screen results. She is now feeling better and is discharged to return to work Lab Data Labs: Lab Results 11/19/24 11/20/24 Range/Units 23:00 01:29 WBC 6.2 (4.0-11.0) 10^3/uL RBC 4.39 (4.20-5.40) 10^6/uL Hgb 13.1 (12.0-16.0) g/dL Hct 39.4 (36.0-48.0) % MCV 89.7 (81.0-99.0) fL MCH 29.8 (26.7-34.0) pg MCHC 33.2 (29.9-35.2) g/dL RDW 13.2 (11.0-15.0) % Plt Count 331 (150-450) 10^3/uL MPV 9.1 L (9.5-13.5) fL Neut % (Auto) 55.3 (43.0-75.0) % Lymph % (Auto) 29.9 (20.5-60.0) % [place] % (Auto) 6.6 (1.7-12.0) % Eos % (Auto) 7.0 (0.9-7.0) % Baso % (Auto) 1.0 (0.2-2.0) % Neut # (Auto) 3.4 (1.4-6.5) 10^3/uL Lymph # (Auto) 1.9 (1.2-3.8) 10^3/uL [place] # (Auto) 0.4 (0.3-0.8) 10^3/uL Eos # (Auto) 0.4 (0.0-0.7) 10^3/uL Baso # (Auto) 0.1 (0.0-0.1) 10^3/uL Abs Immat Gran (auto) 0.01 (0.00-0.03) 10^3/uL Imm/Tot Granulo (auto) 0.2 (0.0-0.5) % Sodium 144 (136-145) mmol/L Potassium 3.9 (3.5-5.1) mmol/L Chloride 107 (98-107) mmol/L Carbon Dioxide 24.6 (21.0-32.0) mmol/L Anion Gap 16.3 BUN 8.0 (7.0-18.0) mg/dL Creatinine 0.94 (0.55-1.02) mg/dL Est GFR ( Amer) >60 (>=60 mL/min/1.73m^2) Est GFR (Non-Af Amer) >60 (>=60 mL/min/1.73m^2) BUN/Creatinine Ratio 8.5 Glucose 101 (74-106) mg/dL Calcium 9.1 (8.5-10.1) mg/dL Urine Opiates Screen Negative (NEGATIVE) Ur Buprenorphine Scrn Negative (NEGATIVE) Ur Oxycodone Screen Negative (NEGATIVE) Urine Methadone Screen Negative (NEGATIVE) Ur Barbiturates Screen Negative (NEGATIVE) U Tricyclic Antidepress Negative (NEGATIVE) Ur Phencyclidine Scrn Negative (NEGATIVE) Ur Amphetamines Screen Negative (NEGATIVE) U Methamphetamines Scrn Negative (NEGATIVE) U Benzodiazepines Scrn Negative (NEGATIVE) Urine Cocaine Screen Positive A (NEGATIVE) U Cannabinoids Screen Positive A (NEGATIVE) Discharge Plan Discharge Chief Complaint: Dizziness Clinical Impression: Substance use Patient Disposition: Home, Self-Care Print Language: Czech Instructions: Polysubstance Use Disorder (ED) Referrals: Physician,Non-Staff, MD [Primary Care Provider] - 1 week
[2024-11-19 23:12] LABS: Hematocrit 39.4 % (36.0-48.0); Hemoglobin 13.1 g/dL (12.0-16.0); Immature Granulocytes Abs Auto 0.01 10^3/uL (0.00-0.03); Immature Granulocytes Pct Auto 0.2 % (0.0-0.5); Lymphocytes Absolute Auto 1.9 10^3/uL (1.2-3.8); Mean Corpuscular HGB Conc 33.2 g/dL (29.9-35.2); Mean Corpuscular Hemoglobin 29.8 pg (26.7-34.0); Mean Corpuscular Volume 89.7 fL (81.0-99.0); Platelet Count 331 10^3/uL (150-450); Red Blood Count 4.39 10^6/uL (4.20-5.40); White Blood Count 6.2 10^3/uL (4.0-11.0)
[2024-11-19 23:19] LABS: Anion Gap 16.3; Blood Urea Nitrogen 8.0 mg/dL (7.0-18.0); Calcium 9.1 mg/dL (8.5-10.1); Carbon Dioxide 24.6 mmol/L (21.0-32.0); Chloride 107 mmol/L (98-107); Estimated GFR (African America >60 (>=60 mL/min/1.73m^2); Estimated GFR (Non-African Ame >60 (>=60 mL/min/1.73m^2); Glucose 101 mg/dL (74-106); Potassium 3.9 mmol/L (3.5-5.1); Sodium 144 mmol/L (136-145)
[2024-11-19] MEDS: METHYLPREDNISOLONE SOD SUCC PF 125 MG/2 ML VIAL IVP (23:26)
[2024-11-19] MEDS: 0.9 % SODIUM CHLORIDE 1,000 ML 999 ML IV (23:26)
[2024-11-20] VITALS (9 sets, daily range): PULSE 68–93
[2024-11-20 01:47] LABS: Cannabinoid Screen Urine POSITIVE (NEGATIVE); Methamphetamines Screen Urine NEGATIVE (NEGATIVE); Tricyclic Antidepressant Urine NEGATIVE (NEGATIVE)
== END 2024-11-20 02:18 | disposition home or self-care (01) ==
PROVIDERS: Emergency Provider Internal Medicine
DX: F14.90 Cocaine use, unspecified, uncomplicated (principal)
CPT/HCPCS: 36415; 80048; 80307; 85025; 93005; 96361; 96374; 99284; J2919